=== PATIENT | female | born 1975 | race Hispanic/Latino ===

== ENCOUNTER 2018-06-18 05:53 | Inpatient (IN) | payer OTHER ==
[2018-06-18] MEDS ORDERED: Morphine 4 MG/ML VIAL IVP STA (06:13)
[2018-06-18] MEDS ORDERED: Sodium Chloride 0.9% 1,000 ML IV STA ×4 (06:14→09:39)
[2018-06-18 06:32] LABS: VENOUS BLOOD GAS BASE EXCESS 4.2 mmol/L (0.0-2.0); VENOUS BLOOD GAS PCO2 50 mmHg (40-60); VENOUS BLOOD GAS PO2 18 mm/Hg (30-55); VENOUS BLOOD PH 7.39 (7.32-7.43)
[2018-06-18 06:38] LABS: BASO % 0.1 % (0.0-2.0); EOS # 0.1 K/uL (0.0-0.7); EOS % 2.3 % (0.0-4.0); HEMOGLOBIN 11.5 g/dL (12.0-16.0); LYMPH # 0.3 K/uL (1.0-4.3); MEAN CELL VOLUME 101.7 fl (81.0-99.0); MEAN CORPUSCULAR HEMOGLOBIN 34.5 pg (27.0-31.0); MEAN CORPUSCULAR HGB CONC 33.9 g/dL (33.0-37.0); MEAN PLATELET VOLUME 7.9 fl (7.2-11.7); MONO # 0.4 K/uL (0.0-0.8); MONO % 9.7 % (0.0-10.0); NEUT # 3.8 K/uL (1.8-7.0); NEUT % 81.9 % (50.0-75.0); NRBC % 0.1 % (0.0-0.0); PLATELET COUNT 261 K/uL (130-400); RBC 3.33 Mil/uL (3.80-5.20); RED CELL DISTRIBUTION WIDTH 12.7 % (11.5-14.5); WHITE BLOOD COUNT 4.6 K/uL (4.8-10.8)
--- NOTE | 2018-06-18 06:47 | ED PDOC ---
HPI: Abdomen Time Seen by Provider: 06/18/18 06:02 Chief Complaint (Nursing): Abdominal Pain Chief Complaint (Provider): Abdominal Pain History Per: Patient History/Exam Limitations: no limitations Onset/Duration Of Symptoms: Hrs Current Symptoms Are (Timing): Still Present Location Of Pain/Discomfort: Diffuse Additional Complaint(s): 43 y/o female with a PMHx of a hysterectomy last September three days ago he went to [facility] for severe abdominal pain and vomiting. Patient reports there was an ovary wrapping around her intestine and had a surgery to unwrap it. Patient states she still has the ovary. Over the past 24 hours, patient reports of an increasingly worsening abdominal pain, distention and vomiting. Patient states she's had over 15 episodes of vomiting that is now becoming bilious, non-bloody. In addition, patient has not had a bowel movement in the last 24 hours and also complains of feeling very weak. PMD: None Provided Past Medical History Reviewed: Historical Data, Nursing Documentation, Vital Signs Vital Signs: Last Vital Signs Temp 100.4 F H 06/18/18 16:00 Pulse 120 H 06/18/18 18:00 Resp 24 06/18/18 18:00 BP 135/87 06/18/18 18:00 Pulse Ox 95 06/18/18 18:00 - Medical History PMH: No Chronic Diseases - Surgical History Surgical History: No Surg Hx - Family History Family History: States: Unknown Family Hx - Home Medications Home Medications: Ambulatory Orders Medication Instructions Recorded Dextroamphetamine/Amphetamine 20 mg PO BID 06/18/18 [Adderall 20 mg Tablet] Dextroamphetamine/Amphetamine 20 mg PO DAILY 06/18/18 [Adderall Xr 20 mg Capsule] Doxycycline Hyclate [Vibramycin] 100 mg PO BID 06/18/18 Tramadol HCl [Ultram] 50 mg PO BID 06/18/18 Valacyclovir HCl [Valacyclovir] 500 mg PO DAILY 06/18/18 Zolpidem [Ambien] 20 mg PO HS PRN 06/18/18 oxyCODONE/Acetaminophen [Percocet 1 tab PO Q4 PRN 06/18/18 5/325 mg Tab] - Allergies Allergies/Adverse Reactions: Allergies Allergy/AdvReac Type Severity Reaction Status Date / Time No Known Allergies Allergy Verified 06/18/18 06:00 Review of Systems ROS Statement: Except As Marked, All Systems Reviewed And Found Negative Gastrointestinal: Positive for: Vomiting, Abdominal Pain Physical Exam - Reviewed Nursing Documentation Reviewed: Yes Vital Signs Reviewed: Yes - Physical Exam Appears: Positive for: In Acute Distress Head Exam: Positive for: ATRAUMATIC, NORMOCEPHALIC Skin: Positive for: Normal Color, Warm, Dry Eye Exam: Positive for: Normal appearance, EOMI, PERRL Neck: Positive for: Normal, Painless ROM Cardiovascular/Chest: Positive for: Tachycardia Respiratory: Positive for: Normal Breath Sounds. Negative for: Respiratory Distress Gastrointestinal/Abdominal: Positive for: Normal Exam, Tenderness (diffusely), Distended, Other (Transverse surgical Scar in lower abdomen. No drainage). Negative for: Soft (firm) - Laboratory Results Result Diagrams: 06/18/18 06:34 06/18/18 06:34 - ECG O2 Sat by Pulse Oximetry: 97 (RA) Pulse Ox Interpretation: Normal Medical Decision Making Medical Decision Making: Time: 18 A/P: 43 y/o female with a history of hysterectomy and recent ovarian surgery presenting with abdominal pain and vomiting. -- Patient is unwell appearing and tachycardic. Patient's blood pressure is stable. -- Concerned for possible bowel perforation vs other complications of surgery vs. small bowel instruction vs colitis vs unlikely severe constipation. -- Will place two IVs -- Type and Screen -- EKG -- Urine Drug Screen -- ED Urine Dipstick -- ED Urine -- CXR One View -- Morphine 4 mg IVP -- Sodium Chloride IV 1000 mls/hr -- Sodium Chloride IV 1000 mls/hr -- Zofran Inj 4 mg IVP -- Blood Culture -- Urine Culture -- Urinalysis Time: 0642 -- Iohexol 50 mL PO -- CBC with differentials -- Lipase -- CMP -- CT ABD/PELVIS PO & IV CONTRAST -- Venous Blood Gas Time: 0700 -- Patient endorsed to Dr. Rodriguez by me, pending ED work up. Scribe Attestation: Documented by Christopher Pino acting as a scribe for Dr. Trung Mcdaniel MD. Provider Scribe Attestation: All medical record entries made by the Scribe were at my direction and personally dictated by me. I have reviewed the chart and agree that the record accurately reflects my personal performance of the history, physical exam, medical decision making, and the department course for this patient. I have also personally directed, reviewed, and agree with the discharge instructions and disposition. Disposition - Clinical Impression Clinical Impression: Intestinal obstruction - Disposition Disposition: Transfer of Care Disposition Time: 07:00 Condition: GUARDED Patient Signed Over To: John Rodriguez Handoff Comments: pending further workup and dispo and re-eval
[2018-06-18 06:48] LABS: ALB/GLOB RATIO 1.2 (1.0-2.1); ALBUMIN 3.6 g/dL (3.5-5.0); ALT/SGPT 29 U/L (9-52); AST/SGOT 37 U/L (14-36); BLOOD UREA NITROGEN 15 mg/dl (7-17); CALCIUM 8.6 mg/dL (8.4-10.2); GFR NON-AFRICAN AMERICAN > 60; LIPASE 25 U/L (23-300)
[2018-06-18] MEDS ORDERED: Iohexol 240 (50 ml) ONE ×2 (07:21→09:44)
--- NOTE | 2018-06-18 07:44 | ED PDOC ---
- Laboratory Results Result Diagrams: 06/18/18 06:34 06/18/18 06:34 - ECG O2 Sat by Pulse Oximetry: 97 (RA) - Progress Re-evaluation Time: 09:11 Condition: Re-examined, Unchanged - Critical Care Total Time (In Min): 30 Medical Decision Making Medical Decision Making: Time: 07:00 Patient care endorsed from Dr. Mcdaneil to Dr. Rodriguez pending CT scans, reevaluation, and final disposition. CT reveals intestinal obstruction. NG tube placed and draining bilious material. CBC with 29 Bands. Will start on IV vanco Zosyn and IVFs. Scribe Attestation: Documented by Clint Mota, acting as a scribe for John Rodriguez MD. Provider Scribe Attestation: All medical record entries made by the Scribe were at my direction and personally dictated by me. I have reviewed the chart and agree that the record accurately reflects my personal performance of the history, physical exam, medical decision making, and the department course for this patient. I have also personally directed, reviewed, and agree with the discharge instructions and disposition. Disposition - Clinical Impression Clinical Impression: Intestinal obstruction - POA Present On Arrival: None - Disposition Disposition: Admitted as In-Patient Disposition Time: 09:12 Condition: GUARDED Forms: So[employer]ina (Eritrean)
[2018-06-18] MEDS ORDERED: Iohexol 300 100 ML IJ ONE (07:54)
[2018-06-18] MEDS ORDERED: Sodium Chloride 0.9% 50 ML IV ONE (07:55)
[2018-06-18] MEDS: Iohexol 240 (50 ml) PO ONE ×3 (08:00→12:18)
[2018-06-18 08:52] LABS: BANDS 29 % (0-2); EOSINOPHIL 2 % (0-7); LYMPHOCYTE 10 % (20-50); MONOCYTE 11 % (0-10); NEUTROPHIL 48 % (42-75); TOTAL CELLS COUNTED 100
[2018-06-18 08:53] LABS: HYPOCHROMIC SLIGHT; PLATELET ESTIMATE NORMAL (NORMAL); TOXIC GRANULATION PRESENT
[2018-06-18] MEDS ORDERED: Piperacillin/Tazobact 3.375 GM in Sodium Chloride 0.9% 100 ML IVPB STA (09:00)
[2018-06-18] MEDS ORDERED: Sodium Chloride 0.9% 1,000 ML IV SCH (09:00)
[2018-06-18] MEDS ORDERED: Piperacillin/Tazobact 3.375 gm Inj IVPB ONE (09:09)
[2018-06-18] MEDS ORDERED: Iohexol 240 (50 ml) PO ONE (09:29)
--- NOTE | 2018-06-18 10:01 | CT ---
Date of service: 06/18/2018 PROCEDURE: CT Abdomen and Pelvis with contrast HISTORY: Abd pain. History of unspecified laparotomy approximately 3 days previous. COMPARISON: None. TECHNIQUE: Contrast dose: 90 mL Omnipaque 300 Radiation dose: Total exam DLP = 338.41 mGy-cm. This CT exam was performed using one or more of the following dose reduction techniques: Automated exposure control, adjustment of the mA and/or kV according to patient size, and/or use of iterative reconstruction technique. FINDINGS: LOWER THORAX: Small bilateral pleural effusion with minimal bilateral lower lobe compressive atelectasis. LIVER: Normal size, contour and attenuation. Scattered nonspecific very small low-attenuation lesions in the right and left lobe, largest 8 mm. No biliary dilatation. GALLBLADDER AND BILE DUCTS: Unremarkable. PANCREAS: Unremarkable. No gross lesion or ductal dilatation. SPLEEN: Unremarkable. ADRENALS: Unremarkable. No mass. KIDNEYS AND URETERS: Unremarkable. No hydronephrosis. No solid mass. VASCULATURE: Unremarkable. No aortic aneurysm. BOWEL: Numerous dilated small bowel loops consistent with mechanical small bowel obstruction. There are collapsed loops of ileum identified. Precise point of obstruction is not evident from this examination. APPENDIX: Normal appendix. PERITONEUM: Mild ascites. There is an extraperitoneal high attenuation collection anterior to the bladder base measuring approximately 4.3 x 5.8 x 7.4 cm. This likely represents a postoperative hematoma. There are bubbles of gas inferior to the base of this collection, in the extraperitoneal space anterior to the urinary bladder. This could represent an infection but does not have an appearance consistent with foreign abscess at this time. There is enlargement of the inferior aspect of the rectus muscle bilaterally consistent with hemorrhage/edema from recent surgery. Small high attenuation collections are seen scattered in the lower anterior abdominal wall intermixed with gas bubbles, consistent with recent postoperative status. There are few small foci of intraperitoneal gas seen in the upper abdomen, adjacent to the solo hepatis, consistent with trace postoperative pneumoperitoneum. There is no generalized pneumoperitoneum appreciated to suggest bowel perforation. LYMPH NODES: Unremarkable. No enlarged lymph nodes. BLADDER: Unremarkable. REPRODUCTIVE: Normal uterus BONES: No acute fracture. OTHER FINDINGS: None. IMPRESSION: Status post laparotomy with postoperative change in the anterior abdominal wall and rectus muscles. There is probable acute hematoma in the inferior extraperitoneal space anterior to the base of the urinary bladder, up to 7.4 cm greatest dimension. There are a few bubbles of gas seen inferior to this collection without associated foreign fluid collection. Possible infection without matured abscess at this time. Mild ascites. Mechanical small bowel obstruction with point of obstruction not clearly identifiable. There are collapsed loops of ileum identified. Trace pneumoperitoneum consistent with postoperative status. Minimal bilateral pleural effusion.
--- NOTE | 2018-06-18 10:12 | CP.PCM.CON ---
<Savi Yin - Last Filed: 06/18/18 09:56> History of Present Illness - History of Present Illness History of Present Illness: Surgery 43 F w recent ho exploratory laparotomy for R ovarian torsion came with abdominal pain, abdominal distention, N, vomiting. Pt reports having abdominal pain since 06/[address] [facility]. Found to have R ovarian torsion. Per Dr. Alves at [facility] there were adhesions of bowel on R retroperitoneal area., adnexal torsion with rutpured ovarian cyst. R oophrectomy and lysis of adhesion was performed. No bowel was resected. Path showed hemorrhagic ovarian cyst. Severe pain started on tuesday. Last BM or flatus was also on tuesday. Per Dr. Alves, pt was doing well post-operatively and was sent home yestesday. Pt contisues to have diffuse abdominal pain, multiple episodes of bilious vomiting. Abdomen is distended. NGT was placed in ED. Put out 300cc thick bilious output immediately. Pt reports relieved sx. CT was done w/o PO contrast bc pt couldn;t tolerate PO. Shows dilated loops of SB w air/fluids level . Post op changes. Pt was unable to tolerated PO and after NGT placement pt reports thirst and hunger. PMH: Bicornuate uterus, fibroids, Anxiety, ADHD PSH : Ex lap R oophrectomy, TITA (06/15/[address] [facility] by Dr. Alves) , Hysterectomy for fibroids (09/2017) , Appendectomy (10 yrs ago) Meds: Adderall, Ambiem Review of Systems - Review of Systems Review of Systems: See HPI - Constitutional Constitutional: Anorexia. absent: Chills - Gastrointestinal Gastrointestinal: Abdominal Pain, Bloating, Change in Bowel Habits, Constipation , Nausea, Vomiting. absent: Heartburn, Hematemesis, Hematochezia, Melena - Genitourinary Genitourinary: absent: Dysuria Past Patient History - Past Social History Smoking Status: Never Smoked - PSYCHIATRIC Hx Substance Use: No - SURGICAL HISTORY Hx Surgeries: Yes Hx Hysterectomy: Yes Other/Comment: ovary twisted around intestine - ANESTHESIA Hx Anesthesia: Yes Meds Allergies/Adverse Reactions: Allergies Allergy/AdvReac Type Severity Reaction Status Date / Time No Known Allergies Allergy Verified 06/18/18 06:00 - Medications Medications: Current Medications Acetaminophen (Tylenol 325mg Tab) 650 mg PO Q4 PRN PRN Reason: Fever >100.4 F Hydromorphone HCl (Dilaudid) 0.5 mg IVP Q4 PRN PRN Reason: Pain, moderate (4-7) Sodium Chloride (Sodium Chloride 0.9%) 1,000 mls @ 100 mls/hr IV .Q10H [facility]INE Stop: 06/19/18 08:57 Vancomycin HCl 1 gm/ Sodium (Chloride) 250 mls @ 166.667 mls/hr IVPB STAT STA PRN Reason: Protocol Stop: 06/18/18 10:29 Piperacillin Sod/Tazobactam (Sod 3.375 gm/ Sodium Chloride) 100 mls @ 100 mls/ hr IVPB STAT STA PRN Reason: Protocol Stop: 06/18/18 09:59 Last Admin: 06/18/18 09:19 Dose: 100 mls/hr Sodium Chloride (Sodium Chloride 0.9%) 1,000 mls @ 1,000 mls/hr IV .Q1H STA Stop: 06/18/18 10:01 Last Admin: 06/18/18 09:08 Dose: 1,000 mls/hr Sodium Chloride (Sodium Chloride 0.9%) 1,000 mls @ 250 mls/hr IV .Q4H STA Stop: 06/18/18 13:38 Ondansetron HCl (Zofran Inj) 4 mg IVP Q4 PRN PRN Reason: Nausea/Vomiting Results - Vital Signs Recent Vital Signs: Last Vital Signs Temp 98.9 F 06/18/18 05:56 Pulse 130 H 06/18/18 05:56 Resp 18 06/18/18 05:56 BP 124/85 06/18/18 05:56 Pulse Ox 97 06/18/18 09:12 - Labs Result Diagrams: 06/18/18 06:34 06/18/18 06:34 Labs: Laboratory Results - last 24 hr 06/18/18 06/18/18 06/18/18 06:29 06:34 06:34 WBC 4.6 L RBC 3.33 L Hgb 11.5 L Hct 33.9 L MCV 101.7 H MCH 34.5 H MCHC 33.9 RDW 12.7 Plt Count 261 MPV 7.9 Neut % (Auto) 81.9 H Lymph % (Auto) 6.0 L [place] % (Auto) 9.7 Eos % (Auto) 2.3 Baso % (Auto) 0.1 Neut # (Auto) 3.8 Lymph # (Auto) 0.3 L [place] # (Auto) 0.4 Eos # (Auto) 0.1 Baso # (Auto) 0.0 Neutrophils % (Manual) 48 Band Neutrophils % 29 H* Lymphocytes % (Manual) 10 L Monocytes % (Manual) 11 H Eosinophils % (Manual) 2 Toxic Granulation Present Platelet Estimate Normal Hypochromasia (manual) Slight Macrocytosis (manual) Slight pO2 18 L VBG pH 7.39 VBG pCO2 50 VBG HCO3 26.3 VBG Total CO2 31.8 H VBG O2 Sat (Calc) 19.2 L VBG Base Excess 4.2 H VBG Potassium 3.9 Sodium 133.0 137 Chloride 98.0 97 L Glucose 124 H Lactate 1.5 FiO2 21.0 Potassium 4.0 Carbon Dioxide 27 Anion Gap 17 BUN 15 Creatinine 0.7 Est GFR ( Amer) > 60 Est GFR (Non-Af Amer) > 60 Random Glucose 114 H Calcium 8.6 Total Bilirubin 0.6 AST 37 H ALT 29 Alkaline Phosphatase 48 Total Protein 6.5 Albumin 3.6 Globulin 2.9 Albumin/Globulin Ratio 1.2 Lipase 25 Venous Blood Potassium 3.9 Assessment & Plan - Assessment and Plan (Free Text) Assessment: Small bowel obstruction s/p recent operation PSH of appendectomy,hysterectomy, R oophrectomy NGT decompression low cont suction IVF NPO Repeat CT w PO contrast via NGT Nausea/pain control DVT/GI ppx Ambulate IS Monitor BM/VS [employer] consult for recent gynecologist sx for Ovarian torsion DW Dr. Kaur <Alexis Kaur - Last Filed: 06/18/18 16:18> History of Present Illness - History of Present Illness History of Present Illness: Patient was seen and examined at the bedside. Agree with resident's note above. Meds - Medications Medications: Current Medications Acetaminophen (Tylenol 325mg Tab) 650 mg PO Q4 PRN PRN Reason: Fever >100.4 F Hydromorphone HCl (Dilaudid) 0.5 mg IVP Q4 PRN PRN Reason: Pain, moderate (4-7) Last Admin: 06/18/18 10:44 Dose: 0.5 mg Hydromorphone HCl (Dilaudid) 1 mg IVP Q4 PRN PRN Reason: Pain, severe (8-10) Last Admin: 06/18/18 14:25 Dose: 1 mg Sodium Chloride (Sodium Chloride 0.9%) 1,000 mls @ 100 mls/hr IV .Q10H [facility] Stop: 06/19/18 08:57 Piperacillin Sod/Tazobactam (Sod 3.375 gm/ Sodium Chloride) 100 mls @ 100 mls/ hr IVPB Q6 [facility]INE PRN Reason: Protocol Lactated Ringer's (Lactated Ringer's) 2,000 mls @ 999 mls/hr IV .Q2H1M [facility] Lactated Ringer's (Lactated Ringer's) 1,000 mls @ 150 mls/hr IV .Q6H40M [facility] Ondansetron HCl (Zofran Inj) 4 mg IVP Q4 PRN PRN Reason: Nausea/Vomiting Pantoprazole Sodium (Protonix Inj) 40 mg IVP DAILY [facility] Last Admin: 06/18/18 10:56 Dose: 40 mg Physical Exam - ENT Exam ENT Exam: Mucous Membranes Dry - GI/Abdominal Exam Additional comments: soft, tender to palpation, mildly distended, BS+, lower abdominal incision clean , no erythema, steri-strips in place Results - Vital Signs Recent Vital Signs: Last Vital Signs Temp 98.4 F 06/18/18 13:39 Pulse 114 H 06/18/18 14:00 Resp 18 06/18/18 14:00 BP 135/74 06/18/18 14:00 Pulse Ox 99 06/18/18 14:00 - Labs Result Diagrams: 06/18/18 06:34 06/18/18 06:34 Labs: Laboratory Results - last 24 hr 06/18/18 06/18/18 06/18/18 06:29 06:29 06:34 WBC 4.6 L RBC 3.33 L Hgb 11.5 L Hct 33.9 L MCV 101.7 H MCH 34.5 H MCHC 33.9 RDW 12.7 Plt Count 261 MPV 7.9 Neut % (Auto) 81.9 H Lymph % (Auto) 6.0 L [place] % (Auto) 9.7 Eos % (Auto) 2.3 Baso % (Auto) 0.1 Neut # (Auto) 3.8 Lymph # (Auto) 0.3 L [place] # (Auto) 0.4 Eos # (Auto) 0.1 Baso # (Auto) 0.0 Neutrophils % (Manual) 48 Band Neutrophils % 29 H* Lymphocytes % (Manual) 10 L Monocytes % (Manual) 11 H Eosinophils % (Manual) 2 Toxic Granulation Present Platelet Estimate Normal Hypochromasia (manual) Slight Macrocytosis (manual) Slight pO2 18 L VBG pH 7.39 VBG pCO2 50 VBG HCO3 26.3 VBG Total CO2 31.8 H VBG O2 Sat (Calc) 19.2 L VBG Base Excess 4.2 H VBG Potassium 3.9 Sodium 133.0 Chloride 98.0 Glucose 124 H Lactate 1.5 FiO2 21.0 Potassium Carbon Dioxide Anion Gap BUN Creatinine Est GFR ( Amer) Est GFR (Non-Af Amer) Random Glucose Calcium Total Bilirubin AST ALT Alkaline Phosphatase Total Protein Albumin Globulin Albumin/Globulin Ratio Lipase Venous Blood Potassium 3.9 Urine Color Urine Clarity Urine pH Ur Specific [place] Urine Protein Urine Glucose (UA) Urine Ketones Urine Blood Urine Nitrate Urine Bilirubin Urine Urobilinogen Ur Leukocyte Esterase Urine RBC (Auto) Urine Microscopic WBC Ur Squamous Epith Cells Urine Bacteria Urine Opiates Screen Urine Methadone Screen Ur Barbiturates Screen Ur Phencyclidine Scrn Ur Amphetamines Screen U Benzodiazepines Scrn U Oth Cocaine Metabols U Cannabinoids Screen Blood Type Blood Type Confirm O POSITIVE Antibody Screen BBK History Checked 06/18/18 06/18/18 06/18/18 06:34 10:28 11:25 WBC RBC Hgb Hct MCV MCH MCHC RDW Plt Count MPV Neut % (Auto) Lymph % (Auto) [place] % (Auto) Eos % (Auto) Baso % (Auto) Neut # (Auto) Lymph # (Auto) [place] # (Auto) Eos # (Auto) Baso # (Auto) Neutrophils % (Manual) Band Neutrophils % Lymphocytes % (Manual) Monocytes % (Manual) Eosinophils % (Manual) Toxic Granulation Platelet Estimate Hypochromasia (manual) Macrocytosis (manual) pO2 VBG pH VBG pCO2 VBG HCO3 VBG Total CO2 VBG O2 Sat (Calc) VBG Base Excess VBG Potassium Sodium 137 Chloride 97 L Glucose Lactate FiO2 Potassium 4.0 Carbon Dioxide 27 Anion Gap 17 BUN 15 Creatinine 0.7 Est GFR ( Amer) > 60 Est GFR (Non-Af Amer) > 60 Random Glucose 114 H Calcium 8.6 Total Bilirubin 0.6 AST 37 H ALT 29 Alkaline Phosphatase 48 Total Protein 6.5 Albumin 3.6 Globulin 2.9 Albumin/Globulin Ratio 1.2 Lipase 25 Venous Blood Potassium Urine Color Urine Clarity Urine pH Ur Specific [place] Urine Protein Urine Glucose (UA) Urine Ketones Urine Blood Urine Nitrate Urine Bilirubin Urine Urobilinogen Ur Leukocyte Esterase Urine RBC (Auto) Urine Microscopic WBC Ur Squamous Epith Cells Urine Bacteria Urine Opiates Screen Positive H Urine Methadone Screen Negative Ur Barbiturates Screen Negative Ur Phencyclidine Scrn Negative Ur Amphetamines Screen Negative U Benzodiazepines Scrn Negative U Oth Cocaine Metabols Negative U Cannabinoids Screen Negative Blood Type O POSITIVE Blood Type Confirm Antibody Screen Negative BBK History Checked No verified bt 06/18/18 11:25 WBC RBC Hgb Hct MCV MCH MCHC RDW Plt Count MPV Neut % (Auto) Lymph % (Auto) [place] % (Auto) Eos % (Auto) Baso % (Auto) Neut # (Auto) Lymph # (Auto) [place] # (Auto) Eos # (Auto) Baso # (Auto) Neutrophils % (Manual) Band Neutrophils % Lymphocytes % (Manual) Monocytes % (Manual) Eosinophils % (Manual) Toxic Granulation Platelet Estimate Hypochromasia (manual) Macrocytosis (manual) pO2 VBG pH VBG pCO2 VBG HCO3 VBG Total CO2 VBG O2 Sat (Calc) VBG Base Excess VBG Potassium Sodium Chloride Glucose Lactate FiO2 Potassium Carbon Dioxide Anion Gap BUN Creatinine Est GFR ( Amer) Est GFR (Non-Af Amer) Random Glucose Calcium Total Bilirubin AST ALT Alkaline Phosphatase Total Protein Albumin Globulin Albumin/Globulin Ratio Lipase Venous Blood Potassium Urine Color Yellow Urine Clarity Slighty-cloudy Urine pH 6.0 Ur Specific [place] >= 1.030 Urine Protein 30 Urine Glucose (UA) Neg Urine Ketones 80 Urine Blood Negative Urine Nitrate Negative Urine Bilirubin Negative Urine Urobilinogen 0.2-1.0 Ur Leukocyte Esterase Neg Urine RBC (Auto) 3 Urine Microscopic WBC 2 Ur Squamous Epith Cells 3 Urine Bacteria Rare Urine Opiates Screen Urine Methadone Screen Ur Barbiturates Screen Ur Phencyclidine Scrn Ur Amphetamines Screen U Benzodiazepines Scrn U Oth Cocaine Metabols U Cannabinoids Screen Blood Type Blood Type Confirm Antibody Screen BBK History Checked - Imaging and Cardiology CT scan - abdomen Status: Image reviewed by me, Report reviewed by me Assessment & Plan - Assessment and Plan (Free Text) Plan: - Keep NPO - NG tube to wall suction - pain control - 2L bolus IV - Powers catheter - Continue antibiotics - KUB in am - Repeat labs in am - Will follow
--- NOTE | 2018-06-18 10:19 | CP.PCM.CON ---
<Da Shah - Last Filed: 06/18/18 11:11> History of Present Illness - History of Present Illness History of Present Illness: 43 yo F POD 3: exploratory laparotomy for R ovarian torsion s/p R oophorectomy with lysis of adhesions. Per Dr. Christina BAPTISTE who performed the procedure, no bowel was resected. Urology was consulted and ureterolysis was performed. No injury was noted to ureters. She did well and discharged on POD2. Of note: Prior symptoms: 06/15/2018, she experienced episodes of nausea with continuous vomiting, yellow in character and upper abdominal pain, sharp in character, 10/10 and radiating to her back. PMHX: MS (2011), Meningioma of brain (2011; did not require surgical, radiation, chemo intervention) Per patient, stable and followed by Dr. Suggs, Neurology. 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 Nunez 09/2017 (2/2 uterine bleed from large leiomyomas) FamHx: none Soc: smokes cigarettes, Denies: etoh or illicit drugs; not sexually active ( years) Close friend: Jessica was present at bedside Review of Systems - Constitutional Constitutional: As Per HPI - Cardiovascular Cardiovascular: absent: Chest Pain - Respiratory Respiratory: absent: Cough, Dyspnea, Wheezing - Gastrointestinal Gastrointestinal: Abdominal Pain, Dyspepsia, Vomiting - Reproductive: Female Reproductive:Female: As Per HPI - Menstruation Menstruation: As Per HPI Past Patient History - Past Medical History & Family History Past Medical History?: Yes - Past Social History Smoking Status: Light Smoker < 10 Cigarettes Daily Alcohol: None Drugs: Denies - CARDIAC Hx Cardiac Disorders: No - PULMONARY Hx Respiratory Disorders: No - NEUROLOGICAL Hx Multiple Sclerosis: Yes (2011) Other/Comment: meningioma 2011. Neuro: Dr. 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 R oophorectomy 05/2018 - ANESTHESIA Hx Anesthesia: Yes Meds Allergies/Adverse Reactions: Allergies Allergy/AdvReac Type Severity Reaction Status Date / Time No Known Allergies Allergy Verified 06/18/18 06:00 - Medications Medications: Current Medications Acetaminophen (Tylenol 325mg Tab) 650 mg PO Q4 PRN PRN Reason: Fever >100.4 F Hydromorphone HCl (Dilaudid) 0.5 mg IVP Q4 PRN PRN Reason: Pain, moderate (4-7) Sodium Chloride (Sodium Chloride 0.9%) 1,000 mls @ 100 mls/hr IV .Q10H CLEMENTINE Stop: 06/19/18 08:57 Vancomycin HCl 1 gm/ Sodium (Chloride) 250 mls @ 166.667 mls/hr IVPB STAT STA PRN Reason: Protocol Stop: 06/18/18 10:29 Sodium Chloride (Sodium Chloride 0.9%) 1,000 mls @ 250 mls/hr IV .Q4H STA Stop: 06/18/18 13:38 Piperacillin Sod/Tazobactam (Sod 3.375 gm/ Sodium Chloride) 100 mls @ 100 mls/ hr IVPB Q6 CLEMENTINE PRN Reason: Protocol Ondansetron HCl (Zofran Inj) 4 mg IVP Q4 PRN PRN Reason: Nausea/Vomiting Physical Exam - Constitutional Appears: In Acute Distress - Head Exam Head Exam: ATRAUMATIC - Eye Exam Eye Exam: EOMI - ENT Exam ENT Exam: Mucous Membranes Dry - Neck Exam Neck exam: Positive for: Full Rom - Respiratory Exam Respiratory Exam: Clear to Auscultation Bilateral, NORMAL BREATHING PATTERN. absent: Wheezes - Cardiovascular Exam Cardiovascular Exam: Tachycardia, REGULAR RHYTHM, +S1, +S2 - GI/Abdominal Exam GI & Abdominal Exam: Distended, Firm, Guarding, Rigid - Extremities Exam Extremities exam: Negative for: calf tenderness - Neurological Exam Neurological exam: Alert, CN II-XII Intact, Oriented x3 - Psychiatric Exam Psychiatric exam: Agitated, Anxious - Skin Additional comments: Low transverse abdominal scar from pfannenstiel incision: wound is C/D/I with steri strips in place. Tender to palpation Results - Vital Signs Recent Vital Signs: Last Vital Signs Temp 97.8 F 06/18/18 09:58 Pulse 115 H 06/18/18 09:58 Resp 16 06/18/18 09:58 BP 130/75 06/18/18 09:58 Pulse Ox 100 06/18/18 09:58 - Labs Result Diagrams: 06/18/18 06:34 06/18/18 06:34 Labs: Laboratory Results - last 24 hr 06/18/18 06/18/18 06/18/18 06:29 06:34 06:34 WBC 4.6 L RBC 3.33 L Hgb 11.5 L Hct 33.9 L MCV 101.7 H MCH 34.5 H MCHC 33.9 RDW 12.7 Plt Count 261 MPV 7.9 Neut % (Auto) 81.9 H Lymph % (Auto) 6.0 L [place] % (Auto) 9.7 Eos % (Auto) 2.3 Baso % (Auto) 0.1 Neut # (Auto) 3.8 Lymph # (Auto) 0.3 L [place] # (Auto) 0.4 Eos # (Auto) 0.1 Baso # (Auto) 0.0 Neutrophils % (Manual) 48 Band Neutrophils % 29 H* Lymphocytes % (Manual) 10 L Monocytes % (Manual) 11 H Eosinophils % (Manual) 2 Toxic Granulation Present Platelet Estimate Normal Hypochromasia (manual) Slight Macrocytosis (manual) Slight pO2 18 L VBG pH 7.39 VBG pCO2 50 VBG HCO3 26.3 VBG Total CO2 31.8 H VBG O2 Sat (Calc) 19.2 L VBG Base Excess 4.2 H VBG Potassium 3.9 Sodium 133.0 137 Chloride 98.0 97 L Glucose 124 H Lactate 1.5 FiO2 21.0 Potassium 4.0 Carbon Dioxide 27 Anion Gap 17 BUN 15 Creatinine 0.7 Est GFR ( Amer) > 60 Est GFR (Non-Af Amer) > 60 Random Glucose 114 H Calcium 8.6 Total Bilirubin 0.6 AST 37 H ALT 29 Alkaline Phosphatase 48 Total Protein 6.5 Albumin 3.6 Globulin 2.9 Albumin/Globulin Ratio 1.2 Lipase 25 Venous Blood Potassium 3.9 Assessment & Plan - Assessment and Plan (Free Text) Assessment: 43 yo F POD 3 s/p R oophrectomy with lysis of abdominal adhesions presents with diffuse abdominal pain/distension, vomiting and bandemia. Plan: Acute SBO -POD 3: R oophorectomy -Admitted to [facility] under care of Hospitalist -Surgery: Dr. Kaur; recommendations appreciated -NPO -IVF: NS at 100 mls/hr -NG tube decompression -IV ABX: Zosyn -Pain management per surgery team -N/V: zofran PRN -Pending repeat CT abdo/pelvis with PO contrast -F/U BCX x2, UA/CX -Monitor vital signs, BM, and urinary movements -Will continue to follow patient while in house Case dw Dr. Dana Shah MD PGY2 <Immanuel Cortez - Last Filed: 06/19/18 10:47> Meds - Medications Medications: Current Medications Acetaminophen (Tylenol 650 Mg Supp) 650 mg DE Q4 PRN PRN Reason: Pain, Mild (1-3) Hydromorphone HCl (Dilaudid) 0.5 mg IVP Q4 PRN PRN Reason: Pain, moderate (4-7) Last Admin: 06/19/18 05:27 Dose: 0.5 mg Hydromorphone HCl (Dilaudid) 1 mg IVP Q4 PRN PRN Reason: Pain, severe (8-10) Last Admin: 06/19/18 09:30 Dose: 1 mg Piperacillin Sod/Tazobactam (Sod 3.375 gm/ Sodium Chloride) 100 mls @ 100 mls/ hr IVPB Q6 CLEMENTINE PRN Reason: Protocol Last Admin: 06/19/18 09:42 Dose: 100 mls/hr Lactated Ringer's (Lactated Ringer's) 2,000 mls @ 999 mls/hr IV .Q2H1M [facility] Last Admin: 06/18/18 21:36 Dose: 999 mls/hr Lactated Ringer's (Lactated Ringer's) 1,000 mls @ 150 mls/hr IV .Q6H40M [facility] Last Admin: 06/19/18 09:32 Dose: 150 mls/hr Vancomycin HCl 1 gm/ Sodium (Chloride) 250 mls @ 166.667 mls/hr IVPB Q12H CLEMENTINE PRN Reason: Protocol Last Admin: 06/19/18 05:35 Dose: 166.667 mls/hr Ondansetron HCl (Zofran Inj) 4 mg IVP Q4 PRN PRN Reason: Nausea/Vomiting Pantoprazole Sodium (Protonix Inj) 40 mg IVP DAILY [facility] Last Admin: 06/19/18 09:55 Dose: 40 mg Results - Vital Signs Recent Vital Signs: Last Vital Signs Temp 98.3 F 06/19/18 08:00 Pulse 101 H 06/19/18 08:00 Resp 16 06/19/18 08:00 BP 144/87 06/19/18 08:00 Pulse Ox 95 06/19/18 08:00 - Labs Result Diagrams: 06/19/18 05:26 06/19/18 05:26 Labs: Laboratory Results - last 24 hr 06/18/18 06/18/18 06/18/18 06:29 10:28 10:46 WBC RBC Hgb Hct MCV MCH MCHC RDW Plt Count MPV Neut % (Auto) Lymph % (Auto) [place] % (Auto) Eos % (Auto) Baso % (Auto) Neut # (Auto) Lymph # (Auto) [place] # (Auto) Eos # (Auto) Baso # (Auto) Sodium Potassium Chloride Carbon Dioxide Anion Gap BUN Creatinine Est GFR ( Amer) Est GFR (Non-Af Amer) Random Glucose Calcium Total Bilirubin AST ALT Alkaline Phosphatase Total Protein Albumin Globulin Albumin/Globulin Ratio Procalcitonin 0.29 Urine Color Urine Clarity Urine pH Ur Specific [place] Urine Protein Urine Glucose (UA) Urine Ketones Urine Blood Urine Nitrate Urine Bilirubin Urine Urobilinogen Ur Leukocyte Esterase Urine RBC (Auto) Urine Microscopic WBC Ur Squamous Epith Cells Urine Bacteria Urine Opiates Screen Urine Methadone Screen Ur Barbiturates Screen Ur Phencyclidine Scrn Ur Amphetamines Screen U Benzodiazepines Scrn U Oth Cocaine Metabols U Cannabinoids Screen Blood Type O POSITIVE Blood Type Confirm O POSITIVE Antibody Screen Negative Crossmatch See Detail BBK History Checked No verified bt 06/18/18 06/18/18 06/19/18 11:25 11:25 05:26 WBC 5.2 RBC 2.79 L Hgb 9.8 L Hct 28.5 L MCV 102.1 H MCH 35.0 H MCHC 34.3 RDW 12.8 Plt Count 274 MPV 7.8 Neut % (Auto) 65.1 Lymph % (Auto) 14.2 L [place] % (Auto) 17.9 H Eos % (Auto) 2.6 Baso % (Auto) 0.2 Neut # (Auto) 3.4 Lymph # (Auto) 0.7 L [place] # (Auto) 0.9 H Eos # (Auto) 0.1 Baso # (Auto) 0.0 Sodium Potassium Chloride Carbon Dioxide Anion Gap BUN Creatinine Est GFR ( Amer) Est GFR (Non-Af Amer) Random Glucose Calcium Total Bilirubin AST ALT Alkaline Phosphatase Total Protein Albumin Globulin Albumin/Globulin Ratio Procalcitonin Urine Color Yellow Urine Clarity Slighty-cloudy Urine pH 6.0 Ur Specific [place] >= 1.030 Urine Protein 30 Urine Glucose (UA) Neg Urine Ketones 80 Urine Blood Negative Urine Nitrate Negative Urine Bilirubin Negative Urine Urobilinogen 0.2-1.0 Ur Leukocyte Esterase Neg Urine RBC (Auto) 3 Urine Microscopic WBC 2 Ur Squamous Epith Cells 3 Urine Bacteria Rare Urine Opiates Screen Positive H Urine Methadone Screen Negative Ur Barbiturates Screen Negative Ur Phencyclidine Scrn Negative Ur Amphetamines Screen Negative U Benzodiazepines Scrn Negative U Oth Cocaine Metabols Negative U Cannabinoids Screen Negative Blood Type Blood Type Confirm Antibody Screen Crossmatch BBK History Checked 06/19/18 05:26 WBC RBC Hgb Hct MCV MCH MCHC RDW Plt Count MPV Neut % (Auto) Lymph % (Auto) [place] % (Auto) Eos % (Auto) Baso % (Auto) Neut # (Auto) Lymph # (Auto) [place] # (Auto) Eos # (Auto) Baso # (Auto) Sodium 137 Potassium 3.7 Chloride 104 Carbon Dioxide 22 Anion Gap 15 BUN 10 Creatinine 0.5 L Est GFR ( Amer) > 60 Est GFR (Non-Af Amer) > 60 Random Glucose 78 Calcium 7.7 L Total Bilirubin 0.4 AST 28 ALT 26 Alkaline Phosphatase 33 L D Total Protein 5.2 L Albumin 2.7 L D Globulin 2.5 Albumin/Globulin Ratio 1.1 Procalcitonin Urine Color Urine Clarity Urine pH Ur Specific [place] Urine Protein Urine Glucose (UA) Urine Ketones Urine Blood Urine Nitrate Urine Bilirubin Urine Urobilinogen Ur Leukocyte Esterase Urine RBC (Auto) Urine Microscopic WBC Ur Squamous Epith Cells Urine Bacteria Urine Opiates Screen Urine Methadone Screen Ur Barbiturates Screen Ur Phencyclidine Scrn Ur Amphetamines Screen U Benzodiazepines Scrn U Oth Cocaine Metabols U Cannabinoids Screen Blood Type Blood Type Confirm Antibody Screen Crossmatch BBK History Checked Assessment & Plan - Assessment and Plan (Free Text) Plan: OB Hospitalist: Pt seen and agree with note PGY2. Followed by surgery. IT SECURITY ARCHITECT to sign off/re-consult if needed. Case discussed with Dr Maki - Date & Time Date: 06/19/18 Time: 10:30
--- NOTE | 2018-06-18 10:29 | RAD ---
Date of service: 06/18/2018 PROCEDURE: CHEST RADIOGRAPH, 1 VIEW HISTORY: r/o free air, recent surgery, distended abdomen COMPARISON: None available. FINDINGS: LUNGS: Clear. PLEURA: No pneumothorax or pleural fluid seen. CARDIOVASCULAR: Normal. OSSEOUS STRUCTURES: No significant abnormalities. VISUALIZED UPPER ABDOMEN: Normal. OTHER FINDINGS: None. IMPRESSION: No active disease.
[2018-06-18] MEDS ORDERED: Vancomycin 1 g Inj ONE (10:31)
--- NOTE | 2018-06-18 10:35 | CP.PCM.HP ---
History of Present Illness - History of Present Illness History of Present Illness: CC: Abdominal pain This is a 43 year old female with a past medical history of a hysterectomy last September, who went to [facility] three days ago c/o severe abdominal pain and vomiting. The patient relates that there the surgeons found an ovary which was wrapping around her intestine and subsequently unwrapped it. She now presents to [facility] due to increasingly worse sharp, crampy abdominal pain centered in the middle of her abdomen and radiating to the left and right sides. A CT scan was performed in the ED which showed signs of an acute bowel obstruction. An NG tube was placed and so far has drained 300 cc of dark green material. The patient's labwork reveal significant bandemia of 29 and neutrophil % of 81.9. The patient was given Vancomycin and Zosyn in the ED, along with aggressive rehydration with normal saline. Dr. Kaur was called on for general surgery and Dr. Cortez was called for Skin Specialist given the involvement of her right ovary in the previous surgery. Currently, patient appears unwell and is tachycardic, although tachycardia has improved somewhat with IV fluid administration. Patient denies chest pain, shortness of breath, fevers, chills, headache. All of the patient's questions were answered at the bedside. Present on Admission - Present on Admission Any Indicators Present on Admission: No History of DVT/PE: No History of Uncontrolled Diabetes: No Review of Systems - Review of Systems Review of Systems: A 12 point review of systems was conducted and found to be negative other than what was mentioned in the HPI. Past Patient History - Infectious Disease Hx of Infectious Diseases: None - Past Medical History & Family History Past Medical History?: Yes Past Family History: Reviewed and not pertinent - Past Social History Smoking Status: Never Smoked Alcohol: None Drugs: Denies - PSYCHIATRIC Hx Substance Use: No - SURGICAL HISTORY Hx Surgeries: Yes Hx Hysterectomy: Yes Other/Comment: ovary twisted around intestine - ANESTHESIA Hx Anesthesia: Yes Meds Allergies/Adverse Reactions: Allergies Allergy/AdvReac Type Severity Reaction Status Date / Time No Known Allergies Allergy Verified 06/18/18 06:00 Physical Exam - Additional Findings Additional findings: Physical exam: Constitutional- cooperative, awake, alert, appears unwell Head- NCAT, PERRL. NG tube draining green material Eye- PERRL, EOMI ENT- normal exam, MMM. Neck- normal inspection, supple, no JVD Respiratory- CTAB, no wheezes rales rhonchi Cardiovascular- RRR, +S1, +S2 no MRG GI/Abdominal- Firm, tender to palpation of the umbilicus, no bowel sounds, no mass, no hsm Skin- warm, dry Extremities Exam- normal capillary refill, normal inspection Neurological Exam- alert, awake, oriented Psych- normal mood, normal affect Results - Vital Signs Recent Vital Signs: Last Vital Signs Temp 98.9 F 06/18/18 05:56 Pulse 130 H 06/18/18 05:56 Resp 18 06/18/18 05:56 BP 124/85 06/18/18 05:56 Pulse Ox 97 06/18/18 09:12 - Labs Result Diagrams: 06/18/18 06:34 06/18/18 06:34 Labs: Laboratory Results - last 24 hr 06/18/18 06/18/18 06/18/18 06:29 06:34 06:34 WBC 4.6 L RBC 3.33 L Hgb 11.5 L Hct 33.9 L MCV 101.7 H MCH 34.5 H MCHC 33.9 RDW 12.7 Plt Count 261 MPV 7.9 Neut % (Auto) 81.9 H Lymph % (Auto) 6.0 L [place] % (Auto) 9.7 Eos % (Auto) 2.3 Baso % (Auto) 0.1 Neut # (Auto) 3.8 Lymph # (Auto) 0.3 L [place] # (Auto) 0.4 Eos # (Auto) 0.1 Baso # (Auto) 0.0 Neutrophils % (Manual) 48 Band Neutrophils % 29 H* Lymphocytes % (Manual) 10 L Monocytes % (Manual) 11 H Eosinophils % (Manual) 2 Toxic Granulation Present Platelet Estimate Normal Hypochromasia (manual) Slight Macrocytosis (manual) Slight pO2 18 L VBG pH 7.39 VBG pCO2 50 VBG HCO3 26.3 VBG Total CO2 31.8 H VBG O2 Sat (Calc) 19.2 L VBG Base Excess 4.2 H VBG Potassium 3.9 Sodium 133.0 137 Chloride 98.0 97 L Glucose 124 H Lactate 1.5 FiO2 21.0 Potassium 4.0 Carbon Dioxide 27 Anion Gap 17 BUN 15 Creatinine 0.7 Est GFR ( Amer) > 60 Est GFR (Non-Af Amer) > 60 Random Glucose 114 H Calcium 8.6 Total Bilirubin 0.6 AST 37 H ALT 29 Alkaline Phosphatase 48 Total Protein 6.5 Albumin 3.6 Globulin 2.9 Albumin/Globulin Ratio 1.2 Lipase 25 Venous Blood Potassium 3.9 Assessment & Plan - Assessment and Plan (Free Text) Plan: This is a 43 year old female with a past medical history of a hysterectomy last September, who went to [facility] three days ago c/o severe abdominal pain and vomiting. The patient relates that there the surgeons found an ovary which was wrapping around her intestine and subsequently unwrapped it. She now presents to [facility] due to increasingly worse sharp, crampy abdominal pain centered in the middle of her abdomen and radiating to the left and right sides. A CT scan was performed in the ED which showed signs of an acute bowel obstruction. An NG tube was placed and so far has drained 300 cc of dark green material. The patient's labwork reveal significant bandemia of 29 and neutrophil % of 81.9. The patient was given Vancomycin and Zosyn in the ED, along with aggressive rehydration with normal saline. Dr. Kaur was called on for general surgery and Dr. Cortez was called for Skin Specialist given the involvement of her right ovary in the previous surgery. Patient being admitted to telemetry. 1) Acute small bowel obstruction - Admit to telemetry - Consultation with Dr. Kaur for surgery - Consultation with Dr. Cortez for hematology specialist - NG tube to low intermittent suction - Continue Zosyn 3.375 q 6 hours - CT scan of abd/pelvis to be repeated with po contrast as per surgery, now that the patient's vomiting has improved - BCX f/u - U/A, UCX stat - Dilaudid for pain control as per surgery - Zofran PRN for N/V - Continue Fluid resuscitation wth NS at 250 cc/hour - NPO with ice chips - f/u urine drug tox - Hold all po medications for now 2) DVT ppx - SCDs
--- NOTE | 2018-06-18 11:00 | CP.PCM.CON ---
History of Present Illness - History of Present Illness History of Present Illness: 43 F came to ER with vomiting and abdominal pain , no diarrhea, no fever. She recently had exploratory laparotomy for R ovarian torsion at [facility] in [facility]. Pt reports having abdominal pain since 06/14 went to [facility]. Found to have R ovarian torsion. Per Dr. Alves at [facility] there were adhesions of bowel on R retroperitoneal area., adnexal torsion with rutpured ovarian cyst. R oophrectomy and lysis of adhesion was performed. No bowel was resected. Path showed hemorrhagic ovarian cyst. Severe pain started on tuesday. Last BM or flatus was also on tuesday. Per Dr. Alves, pt was doing well post-operatively and was sent home yestesday. Pt contisues to have diffuse abdominal pain, multiple episodes of bilious vomiting. Abdomen is distended. NGT was placed in ED. Put out 300cc thick bilious output immediately. Pt reports relieved sx. CT was done w/o PO contrast bc pt couldn;t tolerate PO. Shows dilated loops of SB w air/fluids level . Post op changes. Pt was unable to tolerated PO and after NGT placement pt reports thirst and hunger. Saw the patient in ER, she had normal lactic acid level, BP was stable 135/67 , no fever, but due to significant bandemia and risk for impending sepsis , will admit to ICU for 24 hours and if remained stable, will transfer to med-surg floor by tomorrow. Review of Systems - Constitutional Constitutional: Fatigue - EENT Eyes: As Per HPI Ears: As Per HPI Nose/Mouth/Throat: As Per HPI - Cardiovascular Cardiovascular: Rapid Heart Rate - Respiratory Respiratory: As Per HPI - Gastrointestinal Gastrointestinal: Abdominal Pain, Vomiting - Genitourinary Genitourinary: As Per HPI - Reproductive: Female Reproductive:Female: As Per HPI Past Patient History - Infectious Disease Hx of Infectious Diseases: None - Past Medical History & Family History Past Medical History?: Yes - Past Social History Smoking Status: Light Smoker < 10 Cigarettes Daily Alcohol: None Drugs: Denies - CARDIAC Hx Cardiac Disorders: No - PULMONARY Hx Respiratory Disorders: No - NEUROLOGICAL Hx Multiple Sclerosis: Yes (dx 2011) Other/Comment: meningioma dx 2011. Neuro: Dr. 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 R oophrectomy 05/2018 - ANESTHESIA Hx Anesthesia: Yes Meds Allergies/Adverse Reactions: Allergies Allergy/AdvReac Type Severity Reaction Status Date / Time No Known Allergies Allergy Verified 06/18/18 06:00 - Medications Medications: Current Medications Acetaminophen (Tylenol 325mg Tab) 650 mg PO Q4 PRN PRN Reason: Fever >100.4 F Hydromorphone HCl (Dilaudid) 0.5 mg IVP Q4 PRN PRN Reason: Pain, moderate (4-7) Last Admin: 06/18/18 10:44 Dose: 0.5 mg Sodium Chloride (Sodium Chloride 0.9%) 1,000 mls @ 100 mls/hr IV .Q10H CLEMENTINE Stop: 06/19/18 08:57 Sodium Chloride (Sodium Chloride 0.9%) 1,000 mls @ 250 mls/hr IV .Q4H STA Stop: 06/18/18 13:38 Last Admin: 06/18/18 10:32 Dose: 250 mls/hr Piperacillin Sod/Tazobactam (Sod 3.375 gm/ Sodium Chloride) 100 mls @ 100 mls/ hr IVPB Q6 CLE[facility]INE PRN Reason: Protocol Ondansetron HCl (Zofran Inj) 4 mg IVP Q4 PRN PRN Reason: Nausea/Vomiting Pantoprazole Sodium (Protonix Inj) 40 mg IVP DAILY CLEMENTINE Physical Exam - Constitutional Appears: Non-toxic - Head Exam Head Exam: ATRAUMATIC - Eye Exam Eye Exam: Normal appearance - ENT Exam ENT Exam: Mucous Membranes Moist - Neck Exam Neck exam: Positive for: Full Rom - Respiratory Exam Respiratory Exam: NORMAL BREATHING PATTERN - Cardiovascular Exam Cardiovascular Exam: Tachycardia - GI/Abdominal Exam GI & Abdominal Exam: Distended, Tenderness Results - Vital Signs Recent Vital Signs: Last Vital Signs Temp 97.8 F 06/18/18 09:58 Pulse 113 H 06/18/18 10:44 Resp 23 06/18/18 10:44 BP 132/79 06/18/18 10:44 Pulse Ox 100 06/18/18 10:44 - Labs Result Diagrams: 06/18/18 06:34 06/18/18 06:34 Labs: Laboratory Results - last 24 hr 06/18/18 06/18/18 06/18/18 06:29 06:34 06:34 WBC 4.6 L RBC 3.33 L Hgb 11.5 L Hct 33.9 L MCV 101.7 H MCH 34.5 H MCHC 33.9 RDW 12.7 Plt Count 261 MPV 7.9 Neut % (Auto) 81.9 H Lymph % (Auto) 6.0 L Whitley % (Auto) 9.7 Eos % (Auto) 2.3 Baso % (Auto) 0.1 Neut # (Auto) 3.8 Lymph # (Auto) 0.3 L Whitley # (Auto) 0.4 Eos # (Auto) 0.1 Baso # (Auto) 0.0 Neutrophils % (Manual) 48 Band Neutrophils % 29 H* Lymphocytes % (Manual) 10 L Monocytes % (Manual) 11 H Eosinophils % (Manual) 2 Toxic Granulation Present Platelet Estimate Normal Hypochromasia (manual) Slight Macrocytosis (manual) Slight pO2 18 L VBG pH 7.39 VBG pCO2 50 VBG HCO3 26.3 VBG Total CO2 31.8 H VBG O2 Sat (Calc) 19.2 L VBG Base Excess 4.2 H VBG Potassium 3.9 Sodium 133.0 137 Chloride 98.0 97 L Glucose 124 H Lactate 1.5 FiO2 21.0 Potassium 4.0 Carbon Dioxide 27 Anion Gap 17 BUN 15 Creatinine 0.7 Est GFR ( Amer) > 60 Est GFR (Non-Af Amer) > 60 Random Glucose 114 H Calcium 8.6 Total Bilirubin 0.6 AST 37 H ALT 29 Alkaline Phosphatase 48 Total Protein 6.5 Albumin 3.6 Globulin 2.9 Albumin/Globulin Ratio 1.2 Lipase 25 Venous Blood Potassium 3.9 BBK History Checked 06/18/18 10:28 WBC RBC Hgb Hct MCV MCH MCHC RDW Plt Count MPV Neut % (Auto) Lymph % (Auto) Whitley % (Auto) Eos % (Auto) Baso % (Auto) Neut # (Auto) Lymph # (Auto) Whitley # (Auto) Eos # (Auto) Baso # (Auto) Neutrophils % (Manual) Band Neutrophils % Lymphocytes % (Manual) Monocytes % (Manual) Eosinophils % (Manual) Toxic Granulation Platelet Estimate Hypochromasia (manual) Macrocytosis (manual) pO2 VBG pH VBG pCO2 VBG HCO3 VBG Total CO2 VBG O2 Sat (Calc) VBG Base Excess VBG Potassium Sodium Chloride Glucose Lactate FiO2 Potassium Carbon Dioxide Anion Gap BUN Creatinine Est GFR ( Amer) Est GFR (Non-Af Amer) Random Glucose Calcium Total Bilirubin AST ALT Alkaline Phosphatase Total Protein Albumin Globulin Albumin/Globulin Ratio Lipase Venous Blood Potassium BBK History Checked No verified bt Assessment & Plan - Assessment and Plan (Free Text) Assessment: Dehydration Due to vomiting, poor po in take since surgery causing ST S/P laparotomy for ovarian torsion, POD# 4 Bandemia: R/O sepsis with possibility of intrabdomial infection Intra-abdominal hematoma Post Op Plan: Admit to ICu for hemodynamic monitoring for 24 H , in view of dehydration and bandemia Blood and urine culture, vancomycina and zosyn, given in ER, will continue IVF RL at 150 cc/h labs in am Surgery and OBG evaluation: done in ER PVD prophylax: SCDs, hold AC due to abdominal hematoma.
[2018-06-18 11:38] LABS: SQUAMOUS EPITHIAL 3 /hpf (0-5); URINE BACTERIA RARE (<OCC); URINE BILIRUBIN NEGATIVE (NEGATIVE); URINE BLOOD NEGATIVE (NEGATIVE); URINE CLARITY SLIGHTY-CLOUDY (Clear); URINE COLOR YELLOW (YELLOW); URINE GLUCOSE (UA) NEG (Normal); URINE LEUKOCYTE ESTERASE NEG Leu/uL (Negative); URINE PROTEIN 30 mg/dL (NEGATIVE); URINE UROBILINOGEN 0.2-1.0 mg/dL (0.2-1.0)
[2018-06-18 12:13] LABS: BARBITURATES, UR NEGATIVE (NEGATIVE); BENZODIAZEPINES, UR NEGATIVE (NEGATIVE); OPIATES, UR POSITIVE (NEGATIVE); PHENCYCLIDINE, UR NEGATIVE (NEGATIVE)
--- NOTE | 2018-06-18 12:15 | CT ---
Date of service: 06/18/2018 PROCEDURE: CT Abdomen and Pelvis without intravenous contrast HISTORY: intestinal obstruction COMPARISON: 06/18/2018 at 8:13 a.m. TECHNIQUE: Without contrast.. Contrast dose: 0 Radiation dose: Total exam DLP = 541.89 mGy-cm. This CT exam was performed using one or more of the following dose reduction techniques: Automated exposure control, adjustment of the mA and/or kV according to patient size, and/or use of iterative reconstruction technique. FINDINGS: LOWER THORAX: Small bilateral pleural effusion. Minimal bilateral lower lobe compressive atelectasis. LIVER: Unremarkable. No gross lesion or ductal dilatation. GALLBLADDER AND BILE DUCTS: Unremarkable. PANCREAS: Unremarkable. No gross lesion or ductal dilatation. SPLEEN: Unremarkable. ADRENALS: Unremarkable. No mass. KIDNEYS AND URETERS: Excreted contrast material seen within urinary collecting system has resolved of earlier contrast CT examination of same date. No mass or hydronephrosis. VASCULATURE: Unremarkable. No aortic aneurysm. BOWEL: Multiple dilated small bowel loops consistent with mechanical small bowel obstruction. There are collapsed loops of ileum identified. Precise point of transition is not evident from this examination. The colon is entirely collapsed. Oral contrast material is seen within jejunal loops. APPENDIX: Unremarkable. Normal appendix. PERITONEUM: Ascites. Extraperitoneal hematoma again noted anterior to the urinary bladder, approximately 4.3 x 7.1 x 6.3 cm. Likely postoperative hematoma. Inferior to this, there are bubbles of gas of uncertain significance. No foreign abscess identified. There is enlargement of the inferior rectus muscles likely as result of recent surgery. There is gas and small amount of scattered hematomas in the lower anterior abdominal wall at the site of incision. LYMPH NODES: Unremarkable. No enlarged lymph nodes. BLADDER: Poorly distended. REPRODUCTIVE: Status post hysterectomy. Probable residual cervix evident. BONES: No acute fracture. OTHER FINDINGS: None. IMPRESSION: Status post hysterectomy. Hematoma in lower anterior abdomen, likely extraperitoneal, anterior bladder base. Small amount of gas inferior to the hematoma common nonspecific. Enlargement of the inferior aspect of the rectus muscles likely due to recent surgery. Postoperative changes in anterior abdominal wall. Mechanical small-bowel obstruction again identified. Point of obstruction not clearly identifiable from this examination.
--- NOTE | 2018-06-18 13:49 | CARD ---
APPROVED REPORT Date of service: 06/18/2018 EKG Measurement Heart [id number] <Conclusion> Sinus tachycardia Otherwise normal ECG
[2018-06-18] MEDS: HYDROmorphone 1 mg/ml ISec IVP PRN ×3 (14:25→22:36)
[2018-06-18] MEDS: Lactated Ringer's 2,000 ML IV SCH ×2 (16:24→21:36)
[2018-06-18] MEDS: Piperacillin/Tazobact 3.375 GM in Sodium Chloride 0.9% 100 ML IVPB SCH ×2 (16:26→23:32)
[2018-06-18] MEDS: Lactated Ringer's 1,000 ML IV SCH (23:46)
[2018-06-19] MEDS: HYDROmorphone 1 mg/ml ISec IVP PRN ×2 (03:22→09:30)
[2018-06-19] MEDS: Piperacillin/Tazobact 3.375 GM in Sodium Chloride 0.9% 100 ML IVPB SCH ×4 (03:23→22:53)
[2018-06-19 05:40] LABS: BASO % 0.2 % (0.0-2.0); EOS # 0.1 K/uL (0.0-0.7); EOS % 2.6 % (0.0-4.0); HEMOGLOBIN 9.8 g/dL (12.0-16.0); LYMPH # 0.7 K/uL (1.0-4.3); LYMPH % 14.2 % (20.0-40.0); MEAN CELL VOLUME 102.1 fl (81.0-99.0); MEAN CORPUSCULAR HGB CONC 34.3 g/dL (33.0-37.0); MEAN PLATELET VOLUME 7.8 fl (7.2-11.7); MONO # 0.9 K/uL (0.0-0.8); MONO % 17.9 % (0.0-10.0); NEUT # 3.4 K/uL (1.8-7.0); NEUT % 65.1 % (50.0-75.0); NRBC % 0.1 % (0.0-0.0); RBC 2.79 Mil/uL (3.80-5.20); RED CELL DISTRIBUTION WIDTH 12.8 % (11.5-14.5); WHITE BLOOD COUNT 5.2 K/uL (4.8-10.8)
[2018-06-19 06:11] LABS: ALB/GLOB RATIO 1.1 (1.0-2.1); ALBUMIN 2.7 g/dL (3.5-5.0); ALT/SGPT 26 U/L (9-52); AST/SGOT 28 U/L (14-36); BLOOD UREA NITROGEN 10 mg/dl (7-17); CALCIUM 7.7 mg/dL (8.4-10.2); GFR NON-AFRICAN AMERICAN > 60
[2018-06-19] MEDS ORDERED: Potassium Chloride 20 mEq 100 ML IVPB ONE (07:35)
--- NOTE | 2018-06-19 07:46 | CP.PCM.PN ---
<Mary Parker - Last Filed: 06/19/18 09:13> Subjective - Date & Time of Evaluation Date of Evaluation: 06/19/18 Time of Evaluation: 07:43 - Subjective Subjective: General Surgery Dr. Kaur Pt S&E @bedside. NAEO. pt reports continued abd distention though slightly improved after NGT drainage. denies N/V, F/C. (-)flatus/BM NGT output: 1025cc x24hrs Objective - Vital Signs/Intake and Output Vital Signs (last 24 hours): Temp Pulse Resp BP Pulse Ox 98.5 F 98 H 20 138/69 98 06/19/18 00:00 06/19/18 06:00 06/19/18 06:00 06/19/18 06:00 06/19/18 06:00 Intake and Output: 06/19/18 06/19/18 06:59 18:59 Intake Total 2450 Output Total 1375 Balance 1075 - Medications Medications: Current Medications Acetaminophen (Tylenol 325 Mg Supp) 650 mg KS Q4 PRN PRN Reason: Pain, Mild (1-3) Hydromorphone HCl (Dilaudid) 0.5 mg IVP Q4 PRN PRN Reason: Pain, moderate (4-7) Last Admin: 06/19/18 05:27 Dose: 0.5 mg Hydromorphone HCl (Dilaudid) 1 mg IVP Q4 PRN PRN Reason: Pain, severe (8-10) Last Admin: 06/19/18 03:22 Dose: 1 mg Piperacillin Sod/Tazobactam (Sod 3.375 gm/ Sodium Chloride) 100 mls @ 100 mls/ hr IVPB Q6 CLEMENTINE PRN Reason: Protocol Last Admin: 06/19/18 03:23 Dose: 100 mls/hr Lactated Ringer's (Lactated Ringer's) 2,000 mls @ 999 mls/hr IV .Q2H1M [facility] Last Admin: 06/18/18 21:36 Dose: 999 mls/hr Lactated Ringer's (Lactated Ringer's) 1,000 mls @ 150 mls/hr IV .Q6H40M [facility] Last Admin: 06/18/18 23:46 Dose: 150 mls/hr Vancomycin HCl 1 gm/ Sodium (Chloride) 250 mls @ 166.667 mls/hr IVPB Q12H CLEMENTINE PRN Reason: Protocol Last Admin: 06/19/18 05:35 Dose: 166.667 mls/hr Potassium Chloride (Potassium Chloride 20 Meq/100 Ml) 100 mls @ 50 mls/hr IVPB ONCE ONE Stop: 06/19/18 09:34 Ondansetron HCl (Zofran Inj) 4 mg IVP Q4 PRN PRN Reason: Nausea/Vomiting Pantoprazole Sodium (Protonix Inj) 40 mg IVP DAILY [facility] Last Admin: 06/18/18 10:56 Dose: 40 mg Pneumococcal Polyvalent Vaccine (Pneumovax 23 Vaccine) 0.5 ml IM .ONCE ONE Stop: 06/19/18 09:01 - Labs Labs: 06/19/18 05:26 06/19/18 05:26 - Constitutional Appears: Non-toxic, No Acute Distress - Head Exam Head Exam: NORMAL INSPECTION - Eye Exam Eye Exam: Normal appearance - ENT Exam ENT Exam: Mucous Membranes Moist Additional comments: NGT in place - Respiratory Exam Respiratory Exam: NORMAL BREATHING PATTERN. absent: Accessory Muscle Use, Respiratory Distress - Cardiovascular Exam Cardiovascular Exam: Tachycardia, REGULAR RHYTHM. absent: Bradycardia - GI/Abdominal Exam GI & Abdominal Exam: Distended, Firm. absent: Guarding, Rebound Additional comments: suprapubic incision c/d/i steri-strips in place - Extremities Exam Extremities Exam: Normal Inspection - Neurological Exam Neurological Exam: Alert, Awake, Oriented x3 - Psychiatric Exam Psychiatric exam: Normal Affect, Normal Mood - Skin Skin Exam: Diaphoretic, Intact, Normal Color, Warm Assessment and Plan - Assessment and Plan (Free Text) Assessment: 43 y/o F w/ SBO likely 2/2 PSHx of hysterectomy, appendecyom, and ovarian cystectomy, s/p LSO on 06/15 @[facility] - NPO/IVF - NGT is LCS - monitor NGT drainage - monitor vitals - daily BMP - replete electrolytes PRN - pain management - encourage OOB to chair/IS use - possible OR if non-operative management ineffective Pt discussed w/ Dr. Natasha Parker DO PGY3 <Alexis Kaur - Last Filed: 06/19/18 15:36> Subjective - Date & Time of Evaluation Time of Evaluation: 13:00 - Subjective Subjective: Patient was seen and examined at the bedside. Agree with resident's note above. Objective - Vital Signs/Intake and Output Vital Signs (last 24 hours): Temp Pulse Resp BP Pulse Ox 99.2 F 103 H 1 L 135/80 92 L 06/19/18 12:00 06/19/18 12:00 06/19/18 12:00 06/19/18 12:00 06/19/18 12:00 Intake and Output: 06/19/18 06/19/18 06:59 18:59 Intake Total 2450 2300 Output Total 1375 800 Balance 1075 1500 - Medications Medications: Current Medications Acetaminophen (Tylenol 650 Mg Supp) 650 mg KS Q4 PRN PRN Reason: Pain, Mild (1-3) Hydromorphone HCl (Dilaudid) 1 mg IVP Q4 PRN PRN Reason: Pain, severe (8-10) Last Admin: 06/19/18 09:30 Dose: 1 mg Hydromorphone HCl (Dilaudid) 0.5 mg IVP Q5M PRN PRN Reason: Pain, moderate (4-7) Stop: 06/19/18 17:13 Hydromorphone HCl (Dilaudid 0.2 Mg/Ml Electrical Journeyman) 0 mg IV PRN PRN; Protocol PRN Reason: Pain, moderate (4-7) Piperacillin Sod/Tazobactam (Sod 3.375 gm/ Sodium Chloride) 100 mls @ 100 mls/ hr IVPB Q6 CLEMENTINE PRN Reason: Protocol Last Admin: 06/19/18 09:42 Dose: 100 mls/hr Lactated Ringer's (Lactated Ringer's) 2,000 mls @ 999 mls/hr IV .Q2H1M [facility] Last Admin: 06/18/18 21:36 Dose: 999 mls/hr Lactated Ringer's (Lactated Ringer's) 1,000 mls @ 150 mls/hr IV .Q6H40M [facility] Last Admin: 06/19/18 09:32 Dose: 150 mls/hr Vancomycin HCl 1 gm/ Sodium (Chloride) 250 mls @ 166.667 mls/hr IVPB Q12H CLEMENTINE PRN Reason: Protocol Last Admin: 06/19/18 05:35 Dose: 166.667 mls/hr Lactated Ringer's (Lactated Ringer's) 1,000 mls @ 75 mls/hr IV .[id number] [facility] Ondansetron HCl (Zofran Inj) 4 mg IVP Q4 PRN PRN Reason: Nausea/Vomiting Pantoprazole Sodium (Protonix Inj) 40 mg IVP DAILY [facility] Last Admin: 06/19/18 09:55 Dose: 40 mg - Labs Labs: 06/19/18 05:26 06/19/18 05:26 Assessment and Plan - Assessment and Plan (Free Text) Plan: - To OR for Exploratory Laparotomy possible bowel resection
[2018-06-19] MEDS ORDERED: Pneumococcal 23-Valent Vaccine IM ONE (09:00)
[2018-06-19] MEDS: Lactated Ringer's 1,000 ML IV SCH (09:32)
--- NOTE | 2018-06-19 10:01 | CP.PCM.PN ---
Subjective - Date & Time of Evaluation Date of Evaluation: 06/19/18 Time of Evaluation: 09:53 - Subjective Subjective: General Surgery Pt seen and examined this AM. She reports her abdominal pain is unchanged and severe in intensity. (-) Flatus, (-) BM. Pt with NGT in place. Pt denies nausea now and no vomiting. She also reports waking up this AM gasping for air. Pt denies chest pain, calf pain, or cough. Afebrile. Labs and vitals noted. NGT output 750ml documented + 150ml at bedside, 650 in emesis Pt has been consistently in the low 100s. O2 sat dropped to 90-92% at night per nurse's note and Nasal cannula placed and responding well maintaining saturation >95%. KUB noted, with (-) contrast in colon as read by me (NELL Momin) PE Gen: Pt laying in bed in moderate distress. Moaning. NGT in place with thick bilious output. Skin: warm and dry. Cardio: tachycardia, (-) murmurs, (-) clicks Lungs: CTA bilaterally, (-) tachypneic Abd: Firm, (+) guarding, generalized tenderness. Lower tranverse surgical incision with steri strips, clean and dry. (-) erythema. Extr: (-) calf tenderness bilaterally. A/P SBO Not resolving with conservative management Pt for OR today for Exploratory laparatomy Keep NPO Keep in NGT Monitor labs Objective - Vital Signs/Intake and Output Vital Signs (last 24 hours): Temp Pulse Resp BP Pulse Ox 98.3 F 101 H 16 144/87 95 06/19/18 08:00 06/19/18 08:00 06/19/18 08:00 06/19/18 08:00 06/19/18 08:00 Intake and Output: 06/19/18 06/19/18 06:59 18:59 Intake Total 2450 300 Output Total 1375 50 Balance 1075 250 - Medications Medications: Current Medications Acetaminophen (Tylenol 650 Mg Supp) 650 mg OH Q4 PRN PRN Reason: Pain, Mild (1-3) Hydromorphone HCl (Dilaudid) 0.5 mg IVP Q4 PRN PRN Reason: Pain, moderate (4-7) Last Admin: 06/19/18 05:27 Dose: 0.5 mg Hydromorphone HCl (Dilaudid) 1 mg IVP Q4 PRN PRN Reason: Pain, severe (8-10) Last Admin: 06/19/18 03:22 Dose: 1 mg Piperacillin Sod/Tazobactam (Sod 3.375 gm/ Sodium Chloride) 100 mls @ 100 mls/ hr IVPB Q6 CLEMENTINE PRN Reason: Protocol Last Admin: 06/19/18 03:23 Dose: 100 mls/hr Lactated Ringer's (Lactated Ringer's) 2,000 mls @ 999 mls/hr IV .Q2H1M [facility] Last Admin: 06/18/18 21:36 Dose: 999 mls/hr Lactated Ringer's (Lactated Ringer's) 1,000 mls @ 150 mls/hr IV .Q6H40M [facility] Last Admin: 06/18/18 23:46 Dose: 150 mls/hr Vancomycin HCl 1 gm/ Sodium (Chloride) 250 mls @ 166.667 mls/hr IVPB Q12H [facility] PRN Reason: Protocol Last Admin: 06/19/18 05:35 Dose: 166.667 mls/hr Ondansetron HCl (Zofran Inj) 4 mg IVP Q4 PRN PRN Reason: Nausea/Vomiting Pantoprazole Sodium (Protonix Inj) 40 mg IVP DAILY [facility] Last Admin: 06/18/18 10:56 Dose: 40 mg - Labs Labs: 06/19/18 05:26 06/19/18 05:26
[2018-06-19] MEDS ORDERED: Propofol 10 mg/ml Inj (20 ML) ONE (12:32)
[2018-06-19] MEDS ORDERED: Rocuronium 10 mg/ml (5 ml) ONE (12:33)
[2018-06-19] MEDS ORDERED: Succinylcholine 200 mg/10 ml Inj IV ONE (12:33)
[2018-06-19] MEDS ORDERED: Lidocaine 4% (Laryng-O-Jet) Kit MM ONE (12:33)
[2018-06-19] MEDS ORDERED: ePHEDrine 50 mg/ml Inj ONE (13:02)
[2018-06-19] MEDS ORDERED: Midazolam 2 MG/2 ML VIAL ONE (13:02)
[2018-06-19] MEDS ORDERED: Sodium Chloride 0.9% 500 ML IV ONE ×2 (13:10)
[2018-06-19] MEDS ORDERED: Lactated Ringer's 1,000 ML IV ONE ×2 (13:30)
[2018-06-19] MEDS ORDERED: Dexamethasone 4 mg/1 ml ONE (13:54)
[2018-06-19] MEDS ORDERED: Neostigmine 1:1000 (1 mg/ml) Inj ONE (14:18)
--- NOTE | 2018-06-19 14:18 | CP.PCM.PN ---
Subjective - Date & Time of Evaluation Date of Evaluation: 06/19/18 Time of Evaluation: 12:45 - Subjective Subjective: No fever complains of severe pain NGT in place - drained approx 400ml bilious material since change of shift this am no CP no SOB Plan for Explor Lap today Objective - Vital Signs/Intake and Output Vital Signs (last 24 hours): Temp Pulse Resp BP Pulse Ox 99.2 F 103 H 1 L 135/80 92 L 06/19/18 12:00 06/19/18 12:00 06/19/18 12:00 06/19/18 12:00 06/19/18 12:00 Intake and Output: 06/19/18 06/19/18 06:59 18:59 Intake Total 2450 1300 Output Total 1375 300 Balance 1075 1000 - Medications Medications: Current Medications Acetaminophen (Tylenol 650 Mg Supp) 650 mg CO Q4 PRN PRN Reason: Pain, Mild (1-3) Hydromorphone HCl (Dilaudid) 0.5 mg IVP Q4 PRN PRN Reason: Pain, moderate (4-7) Last Admin: 06/19/18 05:27 Dose: 0.5 mg Hydromorphone HCl (Dilaudid) 1 mg IVP Q4 PRN PRN Reason: Pain, severe (8-10) Last Admin: 06/19/18 09:30 Dose: 1 mg Piperacillin Sod/Tazobactam (Sod 3.375 gm/ Sodium Chloride) 100 mls @ 100 mls/ hr IVPB Q6 [facility]MENTINE PRN Reason: Protocol Last Admin: 06/19/18 09:42 Dose: 100 mls/hr Lactated Ringer's (Lactated Ringer's) 2,000 mls @ 999 mls/hr IV .Q2H1M [facility] Last Admin: 06/18/18 21:36 Dose: 999 mls/hr Lactated Ringer's (Lactated Ringer's) 1,000 mls @ 150 mls/hr IV .Q6H40M [facility] Last Admin: 06/19/18 09:32 Dose: 150 mls/hr Vancomycin HCl 1 gm/ Sodium (Chloride) 250 mls @ 166.667 mls/hr IVPB Q12H [facility]INE PRN Reason: Protocol Last Admin: 06/19/18 05:35 Dose: 166.667 mls/hr Ondansetron HCl (Zofran Inj) 4 mg IVP Q4 PRN PRN Reason: Nausea/Vomiting Pantoprazole Sodium (Protonix Inj) 40 mg IVP DAILY [facility] Last Admin: 06/19/18 09:55 Dose: 40 mg - Labs Labs: 06/19/18 05:26 06/19/18 05:26 - Constitutional Appears: In Acute Distress - Head Exam Head Exam: ATRAUMATIC, NORMAL INSPECTION, NORMOCEPHALIC - Eye Exam Eye Exam: EOMI, Normal appearance, PERRL Pupil Exam: NORMAL ACCOMODATION - ENT Exam ENT Exam: Mucous Membranes Dry, Normal External Ear Exam - Neck Exam Neck Exam: Full ROM. absent: Meningismus - Respiratory Exam Respiratory Exam: NORMAL BREATHING PATTERN. absent: Respiratory Distress - Cardiovascular Exam Cardiovascular Exam: REGULAR RHYTHM, +S1, +S2 - GI/Abdominal Exam GI & Abdominal Exam: Distended, Guarding, Tenderness, Diminished Bowel Sounds, Rebound - Extremities Exam Extremities Exam: Full ROM, Normal Capillary Refill, Normal Inspection. absent : Calf Tenderness, Joint Swelling, Pedal Edema - Back Exam Back Exam: Full ROM, NORMAL INSPECTION. absent: CVA tenderness (L), CVA tenderness (R) - Neurological Exam Neurological Exam: Alert, Awake, Normal Gait Neuro motor strength exam: Left Upper Extremity: 5, Right Upper Extremity: 5, Left Lower Extremity: 5, Right Lower Extremity: 5 - Psychiatric Exam Psychiatric exam: Normal Affect, Normal Mood - Skin Skin Exam: Dry, Normal Color, Warm Assessment and Plan - Assessment and Plan (Free Text) Assessment: This is a 43 year old female with a past medical history of a hysterectomy last September, who went to [facility] three days prior to admission c/o severe abdominal pain and vomiting. The patient relates that there the surgeons found an ovary which was wrapping around her intestine and subsequently unwrapped it. She now presents to [facility] due to increasingly worse sharp, crampy abdominal pain centered in the middle of her abdomen and radiating to the left and right sides. A CT scan was performed in the ED which showed signs of an acute bowel obstruction. An NG tube was placed d- rained 300 cc of dark green material. The patient's labwork reveal significant bandemia of 29 and neutrophil % of 81.9. The patient was given Vancomycin and Zosyn in the ED, along with aggressive rehydration with normal saline. Dr. Kaur was called on for general surgery and Dr. Cortez was called for Business Computers Teacher given the involvement of her right ovary in the previous surgery. Patient being admitted to telemetry. 1) Acute small bowel obstruction - Consultation with Dr. Kaur - Plan for Explor Lap - NG tube to low intermittent suction - Continue Zosyn 3.375 q 6 hours - Dilaudid for pain control - Zofran PRN for N/V - Continue Fluid resuscitation - NPO with ice chips - Hold all po medications for now 2) DVT ppx - SCDs for now
--- NOTE | 2018-06-19 15:12 | PCM.SURG1 ---
Surgeon's Initial Post Op Note - Surgeon's Notes Surgeon: Dr. Kaur Research Biologist: Dr. Bailey, Dr. Soler PGY4; Dr. Parker PGY3 Type of Anesthesia: General Endo Pre-Operative Diagnosis: Small Bowel Obstruction Operative Findings: Internal Hernia containing loop of distal small bowel Post-Operative Diagnosis: same Operation Performed: Exploratory Laparotomy. Lysis of adhesions. Reduction of Internal Hernia. Small Bowel Resection with primary anastomosis. Closure of mesenteric defect Specimen/Specimens Removed: small bowel Estimated Blood Loss: EBL {In ML}: 10 Blood Products Given: N/A Drains Used: No Drains Post-Op Condition: Good Date of Surgery/Procedure: 06/19/18 Time of Surgery/Procedure: 15:13
[2018-06-19] MEDS ORDERED: Lactated Ringer's 1,000 ML IV SCH (15:15)
[2018-06-19] MEDS: HYDROmorphone 0.5 mg/0.5 ml ISec IVP PRN ×4 (15:33→16:20)
[2018-06-19] MEDS ORDERED: HYDROmorphone 1 mg/ml ISec ONE ×3 (15:36→16:03)
[2018-06-19] MEDS ORDERED: HYDROmorphone 1 mg/ml ISec IVP STA ×2 (20:24→21:45)
[2018-06-20] MEDS: Lactated Ringer's 1,000 ML IV SCH ×3 (00:16→13:53)
--- NOTE | 2018-06-20 03:43 | PN ---
DATE: 06/19/2018 LOCATION: The patient in ICU, bed 433. TIME SPENT: 45 minutes. The patient is seen and evaluated at the bedside. Past medical, surgical, social and family history reviewed. SUBJECTIVE: A 43-year-old female with history significant for MS, diagnosed in 2011; meningioma of brain, diagnosed in 2011, not on any treatment; facial MRSA lesion; with appendectomy in 2007; partial hysterectomy in 09/2017 secondary to uterine bleed from large leiomyomas. The patient presented to a hospital at [place] with torsion of right ovary, underwent resection of the right ovarian cyst, lysis of adhesions. Presented to ER on 06/18/2018, complaining of pain associated with vomiting. Noted to have small bowel obstruction. Seen by General Surgery consult. Underwent exploratory laparotomy under general anesthesia. Findings noted. Underwent lysis of adhesions, reduction of internal hernia, small bowel resection with primary anastomosis and closure of mesenteric defect. Estimated blood loss 10 ml. Received 1500 mL of IV fluid. Intraoperative course uneventful. Extubated in the recovery room. Remains under the effect of general anesthesia. PHYSICAL EXAMINATION: VITAL SIGNS: Temperature 98, heart rate 86, blood pressure 150/92, on oxygen supplement, saturating 93%. HEAD, EYES, EARS, NOSE AND THROAT: Pupils are reactive. Conjunctivae are pink. Sclerae are white. NECK: Supple. Trachea central. CHEST: Bilateral breath sounds, diminished in intensity. Clear to auscultation. HEART: Rhythm regular. S1, S2 normal. ABDOMEN: Bowel sounds present. Dressing intact. Bowel sounds reduced in intensity. EXTREMITIES: No clubbing, cyanosis, or edema. NEUROLOGIC EXAMINATION: As noted, recovering from the effect of anesthesia. CURRENT MEDICATIONS: Include Tylenol 650 mg suppository, Dilaudid 1 mg IV every 4 hours, Ringer's lactate at 150 mL per hour, Zofran 4 mg IV every 4 hours p.r.n., Protonix 40 IV daily, Zosyn 3.375 gm IV every 6 hours, vancomycin 1 gm IV every 12 hours. LABORATORY DATA: WBC 5.2, hemoglobin 9.8, hematocrit 28.5, platelet count 274. Preop SMA-7: Sodium 137, potassium 3.7, chloride 104, CO2 of 22, blood urea nitrogen 10, creatinine 0.5, random glucose 78, calcium 7.7. Total bilirubin 0.4, AST 28, ALT 24, alkaline phosphatase 33, total protein 5.2, albumin 2.7. Urinalysis is negative. Toxicology screen positive for opiates. Microbiology: Urine culture, no growth reported. Blood culture, no growth reported. CT abdomen and pelvis done on 06/18/2018, status post hysterectomy, hematoma in the lower anterior abdomen likely extraperitoneal, anterior bladder base, small amount of gas inferior to the hematoma, enlargement of the inferior aspect of the rectus muscle likely due to recent surgery, postoperative changes in the anterior abdominal wall, mechanical small bowel obstruction. IMPRESSION: A 43-year-old female with history of multiple sclerosis, meningioma, leiomyoma, status post hysterectomy, status post resection of the right ovary secondary to torsion. Presenting with small bowel obstruction, underwent exploratory laparotomy, lysis of adhesions, repair of small bowel obstruction and end-to-end colostomy, extubated, hemodynamically stable. Closely monitor for hemodynamic stability. Follow up postoperative laboratories. Continue current antibiotics, analgesics, deep venous thrombosis and gastrointestinal prophylaxis, incentive spirometry to prevent postoperative atelectasis. Kelechi Navarro MD
[2018-06-20] MEDS: Piperacillin/Tazobact 3.375 GM in Sodium Chloride 0.9% 100 ML IVPB SCH ×4 (04:04→21:25)
[2018-06-20 06:08] LABS: EOS % 0.1 % (0.0-4.0); HEMOGLOBIN 9.4 g/dL (12.0-16.0); LYMPH # 0.6 K/uL (1.0-4.3); LYMPH % 6.4 % (20.0-40.0); MEAN CORPUSCULAR HEMOGLOBIN 33.5 pg (27.0-31.0); MEAN CORPUSCULAR HGB CONC 33.2 g/dL (33.0-37.0); MEAN PLATELET VOLUME 7.4 fl (7.2-11.7); MONO # 1.2 K/uL (0.0-0.8); NEUT # 7.3 K/uL (1.8-7.0); NEUT % 80.5 % (50.0-75.0); RBC 2.81 Mil/uL (3.80-5.20); RED CELL DISTRIBUTION WIDTH 13.1 % (11.5-14.5); WHITE BLOOD COUNT 9.1 K/uL (4.8-10.8)
[2018-06-20 06:26] LABS: BLOOD UREA NITROGEN 9 mg/dl (7-17); CALCIUM 7.9 mg/dL (8.4-10.2); GFR NON-AFRICAN AMERICAN > 60
[2018-06-20] MEDS ORDERED: HYDROmorphone 1 mg/ml ISec IVP STA (06:42)
--- NOTE | 2018-06-20 07:24 | CP.PCM.PN ---
Subjective - Date & Time of Evaluation Date of Evaluation: 06/20/18 Time of Evaluation: 07:22 - Subjective Subjective: General Surgery - Dr. Kaur Pt S&E. Pt transferred to [facility] from ICU last night. She states that she was up most of the night waiting for AUTOMOTIVE PAINT TECHNICIAN pump to arrive but overall she feels much better post-op. She now is experiencing expected incisional pain, but states the pain she had before is gone. She denies any Nausea/vomting/Fever/Chills/SOb /Chest pain. NGT in place with 500cc bilious drainage since OR. Powers catheter w/ 1200cc urine since surgery. Objective - Vital Signs/Intake and Output Vital Signs (last 24 hours): Temp Pulse Resp BP Pulse Ox 98.4 F 104 H 18 134/80 96 06/20/18 04:57 06/20/18 04:57 06/20/18 04:57 06/20/18 04:57 06/20/18 04:57 Intake and Output: 06/20/18 06/20/18 06:59 18:59 Intake Total 600 Output Total 900 Balance -300 - Medications Medications: Current Medications Acetaminophen (Tylenol 650 Mg Supp) 650 mg [place] Q4 PRN PRN Reason: Pain, Mild (1-3) Hydromorphone HCl (Dilaudid) 1 mg IVP Q4 PRN PRN Reason: Pain, severe (8-10) Last Admin: 06/19/18 09:30 Dose: 1 mg Hydromorphone HCl (Dilaudid 0.2 Mg/Ml Spiritual Advisor) 0 mg IV PRN PRN; Protocol PRN Reason: Pain, moderate (4-7) Last Admin: 06/20/18 04:52 Dose: 6 mg Piperacillin Sod/Tazobactam (Sod 3.375 gm/ Sodium Chloride) 100 mls @ 100 mls/ hr IVPB Q6 [facility] PRN Reason: Protocol Last Admin: 06/20/18 04:04 Dose: 100 mls/hr Lactated Ringer's (Lactated Ringer's) 2,000 mls @ 999 mls/hr IV .Q2H1M [facility] Last Admin: 06/18/18 21:36 Dose: 999 mls/hr Vancomycin HCl 1 gm/ Sodium (Chloride) 250 mls @ 166.667 mls/hr IVPB Q12H [facility] PRN Reason: Protocol Last Admin: 06/20/18 05:43 Dose: 166.667 mls/hr Lactated Ringer's (Lactated Ringer's) 1,000 mls @ 125 mls/hr IV .Q8H [facility] Last Admin: 06/20/18 02:23 Dose: Not Given Ondansetron HCl (Zofran Inj) 4 mg IVP Q4 PRN PRN Reason: Nausea/Vomiting Pantoprazole Sodium (Protonix Inj) 40 mg IVP DAILY [facility] Last Admin: 06/19/18 09:55 Dose: 40 mg - Labs Labs: 06/20/18 05:00 06/20/18 05:00 - Constitutional Appears: No Acute Distress - Head Exam Head Exam: ATRAUMATIC, NORMAL INSPECTION, NORMOCEPHALIC - Respiratory Exam Respiratory Exam: NORMAL BREATHING PATTERN. absent: Respiratory Distress - Cardiovascular Exam Cardiovascular Exam: REGULAR RHYTHM - GI/Abdominal Exam GI & Abdominal Exam: Soft, Tenderness (appropriate ttp around incision). absent : Distended, Firm, Guarding, Rigid, Rebound - Neurological Exam Neurological Exam: Alert, Oriented x3 - Psychiatric Exam Psychiatric exam: Normal Affect, Normal Mood - Skin Skin Exam: Dry, Intact Assessment and Plan - Assessment and Plan (Free Text) Assessment: 43F POD#1 s/p Ex-Lap, lysis of adhesions, reduction of internal hernia, small bowel resection -Continue NGT to low continuous suction, may clamp periodically for 30 min intervals of ambulation -NPO with sips/chips -D/C Powers -Continue IVF, IV abx -Pain control with AUTOMOTIVE PAINT TECHNICIAN -Encourage OOB/Ambulation -GI/DVT Prophylaxis DW Dr. Natasha Soler PGY4
--- NOTE | 2018-06-20 08:41 | OP ---
PROCEDURE DATE: 06/19/18 PREOPERATIVE DIAGNOSIS: Small bowel obstruction. POSTOPERATIVE DIAGNOSES: Small bowel obstruction and internal hernia. PROCEDURES: Exploratory laparotomy, reduction of the internal hernia, small bowel resection. SURGEON: Alexis Kaur MD DIRECTOR OF HEMOPHILIA: Leo. SECOND DIRECTOR OF HEMOPHILIA: THIRD DIRECTOR OF HEMOPHILIA: Mary Parker DO ANESTHESIOLOGIST: Mary Meredith MD ANESTHESIA: General and endotracheal intubation. INTRAVENOUS FLUIDS: Crystalloids. ESTIMATED BLOOD LOSS: 25 mL. INTRAOPERATIVE FINDINGS: Internal hernia and small bowel obstruction as well as nonviable portion of the small bowel. SPECIMEN: Small bowel. BRIEF HISTORY: Ms. Duncan is a very pleasant 43-year-old female who came to the hospital following her discharge from [facility] approximately 12 hours after discharge from [facility]. The patient presented to [facility] and underwent right ovarian cystectomy, and subsequent to that was discharged from the hospital few days after the surgery and presented to [facility] with symptoms of small bowel obstruction. Upon further investigation, the patient was found to have small bowel obstruction on a CAT scan. At the time of presentation to the hospital, the patient was severely dehydrated and tachycardic, so the patient was resuscitated overnight with some aggressive IV fluid resuscitation and subsequent to that was taken to the operating room for above-stated procedure. All the risks and benefits of the procedure were explained to the patient and with the patient having a full understanding of all the risks and benefits involved, informed consent was obtained, and the patient was taken to the operating room for above-stated procedure. DESCRIPTION OF PROCEDURE: The patient was brought into the operating room and placed supine on the operating table. Bilateral Flowtron boots were applied to the patient's lower extremities. After successful induction of anesthesia and successful endotracheal intubation by the anesthesia team, Powers catheter was inserted into the patient's urinary bladder. Subsequent to that, the patient's abdomen was prepped with ChloraPrep stick and draped in a standard surgical fashion. Prior to the beginning of procedure, a time-out was called in the room, and everyone in the room were in agreement. Using a 10-blade scalpel knife, approximately 15-cm incision was made in the midline extending above the umbilicus going around the umbilicus on the right side of the patient and extending approximately 4 cm below the umbilicus. Once this was accomplished, using electrical cautery, the subcutaneous tissues were opened up. At this point in time, the fascial layer was encountered. A small jair was made in the fascia. Subsequent to that, two Bria clamps were placed on both ends of the fascia. Subsequent to that, fascia was opened up a little more. At this point in time, peritoneal layer was encountered. Peritoneum was clamped with two Bria clamps and transacted with Metzenbaum scissors. At this point in time, we visualized some serosanguineous ascites that was suctioned out approximately 700 mL of that. At this point in time, the entire length of the incision was opened up, and the fascial layer was opened up. Once this was accomplished, the small bowel was exteriorized. Bowel was run all the way from ligament of Trietz to the cecum. Small bowel appeared to be severely distended, and upon investigation of the small bowel closer to the terminal ileum, there appeared to be adhesive band and the loop of ileum herniated through the adhesive band causing the small bowel obstruction. At this point in time, the internal hernia was reduced, and adhesive band was cut. Once this was accomplished, the bowel was inspected. There appeared to be two areas of bowel that were not viable. On those areas that were stuck in the internal hernia. So, at this point in time, we made a decision to resect that portion of the small bowel. A small jair was made in the mesentery with electrical cautery, and subsequent to that, a Bria clamp was passed through the mesenteric defect. This was done slightly proximal to the area of necrosed bowel. At this point in time, blue load 75-mm MARC stapler was passed through the mesenteric defect, and the stapler was fired. Then, attention was turned to the distal end of the bowel where the bowel that was nonviable. A small jair was made in the mesentery with electrical cautery. Subsequent to that, Bria clamp was passed through the mesenteric defect and subsequent to that, another blue load of 75-mm MARC stapler was inserted into mesenteric defect, and the stapler was fired. At this point in time, a mesentery of the small bowel was taken over Impact LigaSure device. Once the small bowel was completely freed up, it was passed off to the [facility] as a specimen. At this point in time, the proximal and distal ends of the small bowel were approximated with interrupted 3-0 silk suture on a SH needle in a [id number] fashion. Once this was accomplished, two enterotomies were made in the proximal and distal ends. Subsequent to that, two Allis clamps were placed into the lumen of the bowel. At this point in time, another 75-mm blue load MARC stapler was inserted into both ends of the bowel and stapler was fired. At this point in time, the defect was closed with blue load TA 60 mm stapler. Once this was accomplished, a running 3-0 chromic suture was placed to the staple line. At this point in time, anastomosis was inspected and appeared to be satisfactory. Mesenteric defect was closed with two interrupted 3-0 Vicryl sutures in a [id number] fashion and one interrupted 3-0 Vicryl suture. Once this was accomplished, the entire length of the small bowel was inspected all the way down to the ileocecal valve, and the rest of the bowel appeared to be viable. At this point in time, the rest of the bowel was reduced back into the abdominal cavity. Subsequent to that, two Rebecca clamps were placed on both ends of the fascia. The fascial layer was closed with #1 looped PDS, one from above and one from below and tied in middle. Once this was accomplished, the wound was washed and dried. The skin was approximated with wisam. At this point in time, the patient's abdomen was washed and dried, and a clean dressing was applied to the site of the incision. The patient was successfully extubated by the anesthesia team, transferred to the [facility], and taken to the recovery room in a stable condition. At the end of the procedure, all instrument counts, needles, and sponges were correct. Alexis Kaur MD SAKINA
--- NOTE | 2018-06-20 08:47 | RAD ---
Date of service: 06/19/2018 HISTORY: Small-bowel obstruction. COMPARISON: 06/18/2018. CT abdomen and pelvis. FINDINGS: BOWEL: Persistent dilated proximal and mid small bowel loops consistent with distal small bowel obstruction. No significant free air identified in the colon. BONES: Normal. OTHER FINDINGS: None. IMPRESSION: Persistent approximately stable small bowel obstruction.
[2018-06-20] MEDS ORDERED: Enoxaparin 40 mg Syringe SC SCH (09:00)
--- NOTE | 2018-06-20 10:00 | CP.PCM.PN ---
Subjective - Date & Time of Evaluation Date of Evaluation: 06/20/18 Time of Evaluation: 09:56 - Subjective Subjective: General Surgery Pt seen and examined this AM. Transferred out of the ICU last night. She reports feeling significantly better s/p surgery regarding abdominal pain. She denies N/V. (-) flatus, (-) BM. Pt continues with NGT. Labs and Vitals noted. Urine output 1200ml overnight, since 7am today 400ml. NGT output 500 ml overnight, since 7am 250ml bilious drainage. PE Gen: Pt laying in bed with NGT in no distress. Skin: warm and dry Cardio: (+) tachycardic (-) murmur Lungs: CTA bilaterally Abd: Soft, mildly distended, (+) tenderness along midline incision. Abdominal binder in place. : leach in place with light yellow urine Extr: (-) calf tenderness bilaterally A/P SBO POD 1 s/p exploratory lap, reduction of internal hernia, small bowel resection, lysis of adhesions. Continue NPO with ice chips Encourage IS Encourage OOB Remove leach Monitor NGT output Monitor labs Objective - Vital Signs/Intake and Output Vital Signs (last 24 hours): Temp Pulse Resp BP Pulse Ox 97.5 F L 94 H 18 146/89 97 06/20/18 08:02 06/20/18 08:02 06/20/18 08:02 06/20/18 08:02 06/20/18 08:02 Intake and Output: 06/20/18 06/20/18 06:59 18:59 Intake Total 600 1000 Output Total 900 840 Balance -300 160 - Medications Medications: Current Medications Acetaminophen (Tylenol 650 Mg Supp) 650 mg ID Q4 PRN PRN Reason: Pain, Mild (1-3) Enoxaparin Sodium (Lovenox) 40 mg SC DAILY [facility] PRN Reason: Protocol Hydromorphone HCl (Dilaudid) 1 mg IVP Q4 PRN PRN Reason: Pain, severe (8-10) Last Admin: 06/19/18 09:30 Dose: 1 mg Hydromorphone HCl (Dilaudid 0.2 Mg/Ml Sponge Diver) 0 mg IV PRN PRN; Protocol PRN Reason: Pain, moderate (4-7) Last Admin: 06/20/18 04:52 Dose: 6 mg Piperacillin Sod/Tazobactam (Sod 3.375 gm/ Sodium Chloride) 100 mls @ 100 mls/ hr IVPB Q6 [facility] PRN Reason: Protocol Last Admin: 06/20/18 04:04 Dose: 100 mls/hr Lactated Ringer's (Lactated Ringer's) 2,000 mls @ 999 mls/hr IV .Q2H1M [facility] Last Admin: 06/18/18 21:36 Dose: 999 mls/hr Vancomycin HCl 1 gm/ Sodium (Chloride) 250 mls @ 166.667 mls/hr IVPB Q12H [facility] PRN Reason: Protocol Last Admin: 06/20/18 05:43 Dose: 166.667 mls/hr Lactated Ringer's (Lactated Ringer's) 1,000 mls @ 125 mls/hr IV .Q8H [facility] Last Admin: 06/20/18 02:23 Dose: Not Given Ondansetron HCl (Zofran Inj) 4 mg IVP Q4 PRN PRN Reason: Nausea/Vomiting Pantoprazole Sodium (Protonix Inj) 40 mg IVP DAILY [facility] Last Admin: 06/19/18 09:55 Dose: 40 mg - Labs Labs: 06/20/18 05:00 06/20/18 05:00
[2018-06-20] MEDS: Enoxaparin 40 mg Syringe SC SCH (13:52)
[2018-06-20] MEDS: HYDROmorphone 0.5 mg/0.5 ml ISec IVP PRN ×3 (17:14→21:20)
--- NOTE | 2018-06-20 18:02 | CP.PCM.PN ---
Subjective - Date & Time of Evaluation Date of Evaluation: 06/20/18 Time of Evaluation: 10:00 - Subjective Subjective: No fever Pain controlled on QUARTER BACKER pump no flatus, no BM NGT in place with bilious drainage denies CP no SOB Objective - Vital Signs/Intake and Output Vital Signs (last 24 hours): Temp Pulse Resp BP Pulse Ox 97.8 F 92 H 16 148/91 H 95 06/20/18 16:00 06/20/18 16:00 06/20/18 16:00 06/20/18 16:00 06/20/18 16:00 Intake and Output: 06/20/18 06/20/18 06:59 18:59 Intake Total 600 1000 Output Total 900 840 Balance -300 160 - Medications Medications: Current Medications Acetaminophen (Tylenol 650 Mg Supp) 650 mg [place] Q4 PRN PRN Reason: Pain, Mild (1-3) Enoxaparin Sodium (Lovenox) 40 mg SC DAILY [facility] PRN Reason: Protocol Last Admin: 06/20/18 13:52 Dose: 40 mg Hydromorphone HCl (Dilaudid) 1 mg IVP Q4 PRN PRN Reason: Pain, severe (8-10) Last Admin: 06/20/18 17:14 Dose: 1 mg Piperacillin Sod/Tazobactam (Sod 3.375 gm/ Sodium Chloride) 100 mls @ 100 mls/ hr IVPB Q6 [facility] PRN Reason: Protocol Last Admin: 06/20/18 17:15 Dose: 100 mls/hr Lactated Ringer's (Lactated Ringer's) 2,000 mls @ 999 mls/hr IV .Q2H1M [facility] Last Admin: 06/18/18 21:36 Dose: 999 mls/hr Vancomycin HCl 1 gm/ Sodium (Chloride) 250 mls @ 166.667 mls/hr IVPB Q12H [facility] PRN Reason: Protocol Last Admin: 06/20/18 17:15 Dose: 166.667 mls/hr Lactated Ringer's (Lactated Ringer's) 1,000 mls @ 125 mls/hr IV .Q8H [facility] Last Admin: 06/20/18 13:53 Dose: 125 mls/hr Ondansetron HCl (Zofran Inj) 4 mg IVP Q4 PRN PRN Reason: Nausea/Vomiting Pantoprazole Sodium (Protonix Inj) 40 mg IVP DAILY [facility] Last Admin: 06/20/18 10:13 Dose: 40 mg - Labs Labs: 06/20/18 05:00 06/20/18 05:00 - Constitutional Appears: In Acute Distress - Head Exam Head Exam: ATRAUMATIC, NORMAL INSPECTION, NORMOCEPHALIC - Eye Exam Eye Exam: EOMI, Normal appearance, PERRL Pupil Exam: NORMAL ACCOMMODATION - ENT Exam ENT Exam: Mucous Membranes Dry, Normal External Ear Exam - Neck Exam Neck Exam: Full ROM. absent: Meningismus - Respiratory Exam Respiratory Exam: NORMAL BREATHING PATTERN. absent: Respiratory Distress - Cardiovascular Exam Cardiovascular Exam: REGULAR RHYTHM, +S1, +S2 - GI/Abdominal Exam GI & Abdominal Exam: surgical wound with dressing , + Tenderness, Diminished Bowel Sounds - Extremities Exam Extremities Exam: Full ROM, Normal Capillary Refill, Normal Inspection. absent : Calf Tenderness, Joint Swelling, Pedal Edema - Back Exam Back Exam: Full ROM, NORMAL INSPECTION. absent: CVA tenderness (L), CVA tenderness (R) - Neurological Exam Neurological Exam: Alert, Awake, Normal Gait Neuro motor strength exam: Left Upper Extremity: 5, Right Upper Extremity: 5, Left Lower Extremity: 5, Right Lower Extremity: 5 - Psychiatric Exam Psychiatric exam: Normal Affect, Normal Mood - Skin Skin Exam: Dry, Normal Color, Warm Assessment and Plan - Assessment and Plan (Free Text) Assessment: This is a 43 year old female with a past medical history of a hysterectomy last September, who went to [facility] three days prior to admission c/o severe abdominal pain and vomiting. The patient relates that there the surgeons found an ovary which was wrapping around her intestine and subsequently unwrapped it. She now presents to [facility] due to increasingly worse sharp, crampy abdominal pain centered in the middle of her abdomen and radiating to the left and right sides. A CT scan was performed in the ED which showed signs of an acute bowel obstruction. An NG tube was placed drained dark green bilious material. The patient's labwork reveal significant bandemia of 29 and neutrophil % of 81.9. The patient was started on IV Vancomycin and Zosyn along with aggressive rehydration with normal saline. Dr. Kaur was called on for general surgery and Dr. Cortez was called for Grades 1 Thru 6 Visiting Teacher 1) Acute small bowel obstruction s/p Explor Lap - Adhesiolysis ,Reduction of Internal Hernia, Bowel resection with end to end anastomosis - Consultation with Dr. Kaur - NG tube to low intermittent suction - Continue Zosyn 3.375 q 6 hours and IV Vanco - Dilaudid IV prn for pain control , d/c QUARTER BACKER pump - Zofran PRN for N/V - Continue Fluid resuscitation - NPO -Hold all po medications for now - 2) DVT ppx Lovenox
[2018-06-21] MEDS: HYDROmorphone 0.5 mg/0.5 ml ISec IVP PRN ×5 (01:09→20:31)
[2018-06-21] MEDS: Lactated Ringer's 1,000 ML IV SCH ×3 (03:00→17:33)
[2018-06-21] MEDS: Piperacillin/Tazobact 3.375 GM in Sodium Chloride 0.9% 100 ML IVPB SCH ×4 (03:42→21:50)
[2018-06-21 05:30] LABS: BASO % 0.4 % (0.0-2.0); EOS # 0.2 K/uL (0.0-0.7); EOS % 1.6 % (0.0-4.0); LYMPH # 1.3 K/uL (1.0-4.3); LYMPH % 10.3 % (20.0-40.0); MEAN CELL VOLUME 100.4 fl (81.0-99.0); MEAN CORPUSCULAR HEMOGLOBIN 33.9 pg (27.0-31.0); MEAN CORPUSCULAR HGB CONC 33.7 g/dL (33.0-37.0); MEAN PLATELET VOLUME 7.3 fl (7.2-11.7); MONO # 1.3 K/uL (0.0-0.8); MONO % 10.7 % (0.0-10.0); NEUT # 9.6 K/uL (1.8-7.0); NRBC % 0.1 % (0.0-0.0); RBC 2.65 Mil/uL (3.80-5.20); RED CELL DISTRIBUTION WIDTH 12.9 % (11.5-14.5); WHITE BLOOD COUNT 12.4 K/uL (4.8-10.8)
[2018-06-21 06:47] LABS: BLOOD UREA NITROGEN 7 mg/dl (7-17); CALCIUM 7.8 mg/dL (8.4-10.2); GFR NON-AFRICAN AMERICAN > 60
[2018-06-21] MEDS ORDERED: Potassium CL 10 MEQ/50 ML 50 ML IVPB SCH (08:00)
[2018-06-21] MEDS: Enoxaparin 40 mg Syringe SC SCH (09:58)
[2018-06-21] MEDS ORDERED: HYDROmorphone 0.5 mg/0.5 ml ISec IVP SCH (10:00)
[2018-06-21] MEDS: HYDROmorphone 1 mg/ml ISec IVP PRN ×2 (10:09→13:17)
[2018-06-21] MEDS ORDERED: Potassium Phosphate 30 MMOLE in Dextrose 5% In Water 250 ML IV ONE (10:30)
--- NOTE | 2018-06-21 10:52 | CP.PCM.PN ---
Subjective - Date & Time of Evaluation Date of Evaluation: 06/21/18 Time of Evaluation: 10:51 - Subjective Subjective: Surgery Pt seen and examined with Dr. Kaur. c/o abd pain. Denies fever, vomiting, flatus, BM. NGT in place 800cc bilious output /24hrs. AMbulates with help. Using IS. Voiding freely. Dressing removed. Objective - Vital Signs/Intake and Output Vital Signs (last 24 hours): Temp Pulse Resp BP Pulse Ox 99.3 F 106 H 18 143/79 93 L 06/21/18 07:58 06/21/18 07:58 06/21/18 07:58 06/21/18 07:58 06/21/18 07:58 Intake and Output: 06/21/18 06/21/18 06:59 18:59 Intake Total 1550 Output Total 1650 Balance -100 - Medications Medications: Current Medications Acetaminophen (Tylenol 650 Mg Supp) 650 mg [place] Q4 PRN PRN Reason: Pain, Mild (1-3) Enoxaparin Sodium (Lovenox) 40 mg SC DAILY [facility] PRN Reason: Protocol Last Admin: 06/21/18 09:58 Dose: 40 mg Hydromorphone HCl (Dilaudid) 1 mg IVP Q3 PRN PRN Reason: Pain, severe (8-10) Last Admin: 06/21/18 10:09 Dose: 1 mg Hydromorphone HCl (Dilaudid) 0.5 mg IVP Q3 PRN PRN Reason: Pain, moderate (4-7) Piperacillin Sod/Tazobactam (Sod 3.375 gm/ Sodium Chloride) 100 mls @ 100 mls/ hr IVPB Q6 [facility] PRN Reason: Protocol Last Admin: 06/21/18 10:01 Dose: 100 mls/hr Lactated Ringer's (Lactated Ringer's) 2,000 mls @ 999 mls/hr IV .Q2H1M [facility] Last Admin: 06/18/18 21:36 Dose: 999 mls/hr Vancomycin HCl 1 gm/ Sodium (Chloride) 250 mls @ 166.667 mls/hr IVPB Q12H [facility] PRN Reason: Protocol Last Admin: 06/21/18 03:46 Dose: 166.667 mls/hr Lactated Ringer's (Lactated Ringer's) 1,000 mls @ 125 mls/hr IV .Q8H [facility] Last Admin: 06/21/18 10:04 Dose: 125 mls/hr Potassium Phosphate 30 mmole/ (Dextrose) 260 mls @ 84 mls/hr IV .Q3H6M ONE Stop: 06/21/18 13:35 Ondansetron HCl (Zofran Inj) 4 mg IVP Q4 PRN PRN Reason: Nausea/Vomiting Pantoprazole Sodium (Protonix Inj) 40 mg IVP DAILY [facility] Last Admin: 06/21/18 09:58 Dose: 40 mg Zolpidem Tartrate (Ambien) 5 mg PO HS [facility] Last Admin: 06/20/18 22:00 Dose: Not Given - Labs Labs: 06/21/18 04:20 06/21/18 04:20 - Constitutional Appears: No Acute Distress - Head Exam Head Exam: ATRAUMATIC, NORMAL INSPECTION, NORMOCEPHALIC - Eye Exam Eye Exam: EOMI, Normal appearance, PERRL Pupil Exam: NORMAL ACCOMODATION, PERRL - ENT Exam ENT Exam: Mucous Membranes Moist, Normal Exam - Neck Exam Neck Exam: Full ROM, Normal Inspection - Respiratory Exam Respiratory Exam: NORMAL BREATHING PATTERN - Cardiovascular Exam Cardiovascular Exam: Tachycardia, +S1, +S2. absent: Murmur - GI/Abdominal Exam GI & Abdominal Exam: Distended, Soft, Tenderness, Hyperactive Bowel Sounds. absent: Firm, Guarding, Rigid, Diminished Bowel Sounds, Hernia, Hypoactive Bowel Sounds, Mass, Organomegaly, Pulsatile Mass, Rebound Additional comments: midline incision 40cm stapled. No signs of infection. TTP - Exam Exam: NORMAL INSPECTION - Extremities Exam Extremities Exam: Full ROM, Normal Capillary Refill, Normal Inspection. absent : Joint Swelling, Pedal Edema - Back Exam Back Exam: NORMAL INSPECTION - Neurological Exam Neurological Exam: Alert, Awake, CN II-XII Intact, Normal Gait, Oriented x3 - Psychiatric Exam Psychiatric exam: Normal Affect, Normal Mood - Skin Skin Exam: Dry, Intact, Normal Color, Warm Assessment and Plan - Assessment and Plan (Free Text) Assessment: POD 2 s/p Ex lap internal hernia reduction, SB resection -NPO -IVF -Labs -replete electrolyte PRN -AMbulate -IS -DVT/GI ppx -Pain /nausea control -NGT Pt seen and examined with Dr. Kaur. Case DW Dr. Kaur
[2018-06-21] MEDS ORDERED: Benzocaine/Menthol (Cepacol) Lozenge PO PRN (11:17)
--- NOTE | 2018-06-21 12:34 | CP.PCM.PN ---
Subjective - Date & Time of Evaluation Date of Evaluation: 06/21/18 Time of Evaluation: 10:30 - Subjective Subjective: Pt is afebrile still no BM nor flatus Hypoactive BS NGT in place Pain controlled Objective - Vital Signs/Intake and Output Vital Signs (last 24 hours): Temp Pulse Resp BP Pulse Ox 99.3 F 106 H 18 143/79 93 L 06/21/18 07:58 06/21/18 07:58 06/21/18 07:58 06/21/18 07:58 06/21/18 07:58 Intake and Output: 06/21/18 06/21/18 06:59 18:59 Intake Total 1550 Output Total 1650 Balance -100 - Medications Medications: Current Medications Acetaminophen (Tylenol 650 Mg Supp) 650 mg [place] Q4 PRN PRN Reason: Pain, Mild (1-3) Benzocaine/Menthol (Cepacol Sore Throat) 1 yohana PO Q2 PRN PRN Reason: Sore Throat Enoxaparin Sodium (Lovenox) 40 mg SC DAILY [facility] PRN Reason: Protocol Last Admin: 06/21/18 09:58 Dose: 40 mg Hydromorphone HCl (Dilaudid) 1 mg IVP Q3 PRN PRN Reason: Pain, severe (8-10) Last Admin: 06/21/18 10:09 Dose: 1 mg Hydromorphone HCl (Dilaudid) 0.5 mg IVP Q3 PRN PRN Reason: Pain, moderate (4-7) Piperacillin Sod/Tazobactam (Sod 3.375 gm/ Sodium Chloride) 100 mls @ 100 mls/ hr IVPB Q6 [facility] PRN Reason: Protocol Last Admin: 06/21/18 10:01 Dose: 100 mls/hr Lactated Ringer's (Lactated Ringer's) 2,000 mls @ 999 mls/hr IV .Q2H1M [facility] Last Admin: 06/18/18 21:36 Dose: 999 mls/hr Vancomycin HCl 1 gm/ Sodium (Chloride) 250 mls @ 166.667 mls/hr IVPB Q12H [facility] PRN Reason: Protocol Last Admin: 06/21/18 03:46 Dose: 166.667 mls/hr Lactated Ringer's (Lactated Ringer's) 1,000 mls @ 125 mls/hr IV .Q8H [facility] Last Admin: 06/21/18 10:04 Dose: 125 mls/hr Potassium Phosphate 30 mmole/ (Dextrose) 260 mls @ 84 mls/hr IV .Q3H6M ONE Stop: 06/21/18 13:35 Ondansetron HCl (Zofran Inj) 4 mg IVP Q4 PRN PRN Reason: Nausea/Vomiting Pantoprazole Sodium (Protonix Inj) 40 mg IVP DAILY [facility] Last Admin: 06/21/18 09:58 Dose: 40 mg Zolpidem Tartrate (Ambien) 5 mg PO HS [facility] Last Admin: 06/20/18 22:00 Dose: Not Given - Labs Labs: 06/21/18 04:20 06/21/18 04:20 - Constitutional Appears: In Acute Distress - Head Exam Head Exam: ATRAUMATIC, NORMAL INSPECTION, NORMOCEPHALIC - Eye Exam Eye Exam: EOMI, Normal appearance, PERRL Pupil Exam: NORMAL ACCOMMODATION - ENT Exam ENT Exam: Mucous Membranes Dry, Normal External Ear Exam - Neck Exam Neck Exam: Full ROM. absent: Meningismus - Respiratory Exam Respiratory Exam: NORMAL BREATHING PATTERN. absent: Respiratory Distress - Cardiovascular Exam Cardiovascular Exam: REGULAR RHYTHM, +S1, +S2 - GI/Abdominal Exam GI & Abdominal Exam: surgical wound with dressing , + Tenderness, Hypoactive Bowel Sounds NGT in place - Extremities Exam Extremities Exam: Full ROM, Normal Capillary Refill, Normal Inspection. absent : Calf Tenderness, Joint Swelling, Pedal Edema - Back Exam Back Exam: Full ROM, NORMAL INSPECTION. absent: CVA tenderness (L), CVA tenderness (R) - Neurological Exam Neurological Exam: Alert, Awake, Normal Gait Neuro motor strength exam: Left Upper Extremity: 5, Right Upper Extremity: 5, Left Lower Extremity: 5, Right Lower Extremity: 5 - Psychiatric Exam Psychiatric exam: Normal Affect, Normal Mood - Skin Skin Exam: Dry, Normal Color, Warm Assessment and Plan - Assessment and Plan (Free Text) Assessment: This is a 43 year old female with a past medical history of a hysterectomy last September, who went to [facility] three days prior to admission c/o severe abdominal pain and vomiting. The patient relates that there the surgeons found an ovary which was wrapping around her intestine and subsequently unwrapped it. She now presents to [facility] due to increasingly worse sharp, crampy abdominal pain centered in the middle of her abdomen and radiating to the left and right sides. A CT scan was performed in the ED which showed signs of an acute bowel obstruction. An NG tube was placed drained dark green bilious material. The patient's labwork reveal significant bandemia of 29 and neutrophil % of 81.9. The patient was started on IV Vancomycin and Zosyn along with aggressive rehydration with normal saline. Dr. Kaur was called on for general surgery and Dr. Cortez was called for Online Editor Pt had Explor Lap done by Dr Kaur - Adhesiolysis ,reduction on int hernia and bowel resection done. 1) Acute small bowel obstruction s/p Explor Lap - Adhesiolysis ,Reduction of Internal Hernia, Bowel resection with end to end anastomosis - Surgery: Dr. Kaur - cont NG tube to low intermittent suction - Continue Zosyn 3.375 q 6 hours and IV Vanco - Dilaudid IV prn for pain control , d/c DOMAIN ARCHITECT pump - Zofran PRN for N/V - cont IVF - NPO, may have ice chips - hypoactive BS , no flatus , no BM - Incentive spirometry - out of bed 2. Hypokalemia/Hypophosphatemia - replace with KCL runs and K Phos 2) DVT ppx Lovenox
[2018-06-21] MEDS ORDERED: Chlorhexidine Gluconate 1 APPL/PKT TP ONE (13:26)
[2018-06-22] MEDS: HYDROmorphone 0.5 mg/0.5 ml ISec IVP PRN ×8 (01:24→23:06)
[2018-06-22] MEDS: Piperacillin/Tazobact 3.375 GM in Sodium Chloride 0.9% 100 ML IVPB SCH ×4 (04:54→21:59)
[2018-06-22 06:21] LABS: BASO % 0.2 % (0.0-2.0); EOS # 0.3 K/uL (0.0-0.7); HEMOGLOBIN 9.1 g/dL (12.0-16.0); LYMPH # 1.5 K/uL (1.0-4.3); LYMPH % 14.2 % (20.0-40.0); MEAN CELL VOLUME 99.2 fl (81.0-99.0); MEAN CORPUSCULAR HEMOGLOBIN 34.7 pg (27.0-31.0); MEAN PLATELET VOLUME 7.1 fl (7.2-11.7); MONO # 1.4 K/uL (0.0-0.8); MONO % 13.7 % (0.0-10.0); NEUT # 7.2 K/uL (1.8-7.0); NEUT % 68.9 % (50.0-75.0); NRBC % 0.1 % (0.0-0.0); RBC 2.62 Mil/uL (3.80-5.20); RED CELL DISTRIBUTION WIDTH 13.1 % (11.5-14.5); WHITE BLOOD COUNT 10.5 K/uL (4.8-10.8)
[2018-06-22 06:50] LABS: BLOOD UREA NITROGEN 5 mg/dl (7-17); CALCIUM 7.9 mg/dL (8.4-10.2); GFR NON-AFRICAN AMERICAN > 60
--- NOTE | 2018-06-22 07:48 | CP.PCM.PN ---
<KeithMary - Last Filed: 06/22/18 08:13> Subjective - Date & Time of Evaluation Date of Evaluation: 06/22/18 Time of Evaluation: 07:46 - Subjective Subjective: General Surgery Dr. Kaur PT S&E @bedside. NGT fell out yesterday and replaced. otherwise, NAEO. Pt denies F/C, N/V. NPO w/ NGT on LCS. NGT 600cc bilious [id number] Objective - Vital Signs/Intake and Output Vital Signs (last 24 hours): Temp Pulse Resp BP Pulse Ox 98.4 F 83 18 149/83 92 L 06/22/18 05:06 06/22/18 05:06 06/22/18 05:06 06/22/18 05:06 06/22/18 05:06 - Medications Medications: Current Medications Acetaminophen (Tylenol 650 Mg Supp) 650 mg [place] Q4 PRN PRN Reason: Pain, Mild (1-3) Benzocaine/Menthol (Cepacol Sore Throat) 1 yohana PO Q2 PRN PRN Reason: Sore Throat Enoxaparin Sodium (Lovenox) 40 mg SC DAILY [facility] PRN Reason: Protocol Last Admin: 06/21/18 09:58 Dose: 40 mg Hydromorphone HCl (Dilaudid) 0.5 mg IVP Q3 PRN PRN Reason: Pain, moderate (4-7) Hydromorphone HCl (Dilaudid) 1 mg IVP Q3 PRN PRN Reason: Pain, severe (8-10) Last Admin: 06/22/18 05:02 Dose: 1 mg Piperacillin Sod/Tazobactam (Sod 3.375 gm/ Sodium Chloride) 100 mls @ 100 mls/ hr IVPB Q6 [facility] PRN Reason: Protocol Last Admin: 06/22/18 04:54 Dose: 100 mls/hr Vancomycin HCl 1 gm/ Sodium (Chloride) 250 mls @ 166.667 mls/hr IVPB Q12H [facility] PRN Reason: Protocol Last Admin: 06/22/18 04:53 Dose: 166.667 mls/hr Potassium Chloride (Potassium Chloride 20 Meq/100 Ml) 100 mls @ 50 mls/hr IV Q2 [facility] Stop: 06/22/18 13:59 Magnesium Sulfate 2 gm/ Sodium (Chloride) 104 mls @ 104 mls/hr IVPB ONCE ONE PRN Reason: 2 GM/HR Stop: 06/22/18 08:26 Potassium Chloride/Dextrose/Sod Cl (Potassium Chl 20 Meq In D5-1/2ns) 1,000 mls @ 100 mls/hr IV .Q10H [facility] Stop: 06/23/18 07:29 Ondansetron HCl (Zofran Inj) 4 mg IVP Q4 PRN PRN Reason: Nausea/Vomiting Pantoprazole Sodium (Protonix Inj) 40 mg IVP DAILY [facility] Last Admin: 06/21/18 09:58 Dose: 40 mg Zolpidem Tartrate (Ambien) 5 mg PO HS [facility] Last Admin: 06/21/18 21:53 Dose: 5 mg - Labs Labs: 06/22/18 05:30 06/22/18 05:30 - Constitutional Appears: Non-toxic, No Acute Distress - Head Exam Head Exam: NORMAL INSPECTION - Eye Exam Eye Exam: Normal appearance - ENT Exam ENT Exam: Mucous Membranes Moist - Respiratory Exam Respiratory Exam: NORMAL BREATHING PATTERN. absent: Accessory Muscle Use, Respiratory Distress - Cardiovascular Exam Cardiovascular Exam: REGULAR RHYTHM. absent: Bradycardia, Tachycardia - GI/Abdominal Exam GI & Abdominal Exam: Distended (mild), Soft, Tenderness (vitaliy-incisional TTP). absent: Guarding, Rigid, Rebound Additional comments: wisam c/d/i - Extremities Exam Extremities Exam: Normal Inspection - Neurological Exam Neurological Exam: Alert, Awake, Oriented x3 - Psychiatric Exam Psychiatric exam: Normal Affect, Normal Mood - Skin Skin Exam: Dry, Intact, Normal Color, Warm Assessment and Plan - Assessment and Plan (Free Text) Assessment: 43 y/o F POD#3 s/p ex-lap for SBO 2/2 internal hernia - maintain NPO - D5 1/2NS +20K @100 - pain management - NGT LCS --> monitor output - monitor vitals - monitor bowel fxn - encourage OOB to chair/Amb/IS use Pt discussed w/ Dr. Natasha Parker DO PGY3 <Alexis Kaur - Last Filed: 06/22/18 10:49> Subjective - Date & Time of Evaluation Time of Evaluation: 10:00 - Subjective Subjective: Patient was seen and examined at the bedside. Agree with resident's note above. Objective - Vital Signs/Intake and Output Vital Signs (last 24 hours): Temp Pulse Resp BP Pulse Ox 98.5 F 87 20 139/84 97 06/22/18 08:45 06/22/18 08:45 06/22/18 08:45 06/22/18 08:45 06/22/18 08:45 - Medications Medications: Current Medications Acetaminophen (Tylenol 650 Mg Supp) 650 mg [place] Q4 PRN PRN Reason: Pain, Mild (1-3) Benzocaine/Menthol (Cepacol Sore Throat) 1 yohana PO Q2 PRN PRN Reason: Sore Throat Enoxaparin Sodium (Lovenox) 40 mg SC DAILY [facility] PRN Reason: Protocol Last Admin: 06/22/18 09:34 Dose: 40 mg Hydromorphone HCl (Dilaudid) 0.5 mg IVP Q3 PRN PRN Reason: Pain, moderate (4-7) Hydromorphone HCl (Dilaudid) 1 mg IVP Q3 PRN PRN Reason: Pain, severe (8-10) Last Admin: 06/22/18 08:18 Dose: 1 mg Piperacillin Sod/Tazobactam (Sod 3.375 gm/ Sodium Chloride) 100 mls @ 100 mls/ hr IVPB Q6 [facility] PRN Reason: Protocol Last Admin: 06/22/18 09:35 Dose: 100 mls/hr Vancomycin HCl 1 gm/ Sodium (Chloride) 250 mls @ 166.667 mls/hr IVPB Q12H [facility] PRN Reason: Protocol Last Admin: 06/22/18 04:53 Dose: 166.667 mls/hr Potassium Chloride (Potassium Chloride 20 Meq/100 Ml) 100 mls @ 50 mls/hr IV Q2 [facility] Stop: 06/22/18 13:59 Potassium Chloride/Dextrose/Sod Cl (Potassium Chl 20 Meq In D5-1/2ns) 1,000 mls @ 100 mls/hr IV .Q10H [facility] Stop: 06/23/18 07:29 Last Admin: 06/22/18 09:44 Dose: 100 mls/hr Ondansetron HCl (Zofran Inj) 4 mg IVP Q4 PRN PRN Reason: Nausea/Vomiting Pantoprazole Sodium (Protonix Inj) 40 mg IVP DAILY [facility] Last Admin: 06/22/18 09:35 Dose: 40 mg Zolpidem Tartrate (Ambien) 5 mg PO HS [facility] Last Admin: 06/21/18 21:53 Dose: 5 mg - Labs Labs: 06/22/18 05:30 06/22/18 05:30 Assessment and Plan - Assessment and Plan (Free Text) Plan: - replace electrolytes - pain control - Insentive spirometry - DVT ppx - Continue antibiotics - Repeat labs in am - Will follow
[2018-06-22] MEDS: Enoxaparin 40 mg Syringe SC SCH (09:34)
[2018-06-22] MEDS: Potassium Ch 20mEq in D5-1/2NS 1,000 ML IV SCH ×2 (09:44→21:33)
[2018-06-22] MEDS: Magnesium Sulfate 1 GM in Dextrose 5% In Water 100 ML IVPB SCH ×2 (09:46→15:00)
[2018-06-22] MEDS: Potassium Chloride 20 mEq 100 ML IV SCH ×3 (10:00→14:00)
--- NOTE | 2018-06-22 16:45 | CP.PCM.PN ---
Subjective - Date & Time of Evaluation Date of Evaluation: 06/22/18 Time of Evaluation: 11:00 - Subjective Subjective: Patient seen and examined. Patient still complaining of pain but it is somewhat controlled with the dilaudid. NG tube fell out and was replaced. 600 cc of drainage from NG tube overnight. Objective - Vital Signs/Intake and Output Vital Signs (last 24 hours): Temp Pulse Resp BP Pulse Ox 98 F 86 20 132/89 95 06/22/18 15:53 06/22/18 15:53 06/22/18 15:53 06/22/18 15:53 06/22/18 15:53 - Medications Medications: Current Medications Acetaminophen (Tylenol 650 Mg Supp) 650 mg [place] Q4 PRN PRN Reason: Pain, Mild (1-3) Benzocaine/Menthol (Cepacol Sore Throat) 1 yohana PO Q2 PRN PRN Reason: Sore Throat Enoxaparin Sodium (Lovenox) 40 mg SC DAILY [facility] PRN Reason: Protocol Last Admin: 06/22/18 09:34 Dose: 40 mg Hydromorphone HCl (Dilaudid) 0.5 mg IVP Q3 PRN PRN Reason: Pain, moderate (4-7) Hydromorphone HCl (Dilaudid) 1 mg IVP Q3 PRN PRN Reason: Pain, severe (8-10) Last Admin: 06/22/18 14:05 Dose: 1 mg Piperacillin Sod/Tazobactam (Sod 3.375 gm/ Sodium Chloride) 100 mls @ 100 mls/ hr IVPB Q6 [facility] PRN Reason: Protocol Last Admin: 06/22/18 09:35 Dose: 100 mls/hr Vancomycin HCl 1 gm/ Sodium (Chloride) 250 mls @ 166.667 mls/hr IVPB Q12H [facility] PRN Reason: Protocol Last Admin: 06/22/18 04:53 Dose: 166.667 mls/hr Potassium Chloride/Dextrose/Sod Cl (Potassium Chl 20 Meq In D5-1/2ns) 1,000 mls @ 100 mls/hr IV .Q10H [facility] Stop: 06/23/18 07:29 Last Admin: 06/22/18 09:44 Dose: 100 mls/hr Ondansetron HCl (Zofran Inj) 4 mg IVP Q4 PRN PRN Reason: Nausea/Vomiting Pantoprazole Sodium (Protonix Inj) 40 mg IVP DAILY [facility] Last Admin: 06/22/18 09:35 Dose: 40 mg Zolpidem Tartrate (Ambien) 5 mg PO HS [facility] Last Admin: 06/21/18 21:53 Dose: 5 mg - Labs Labs: 06/22/18 05:30 06/22/18 05:30 - Additional Findings Additional findings: Physical exam: Constitutional- cooperative, awake, alert, appears uncomfortable Head- NCAT, PERRL Eye- PERRL, EOMI ENT- normal exam, MMM. + NG tube Neck- normal inspection, supple, no JVD Respiratory- CTAB, no wheezes rales rhonchi Cardiovascular- RRR, +S1, +S2 no MRG GI/Abdominal- + surgical wound with dressing intact, still with diffuse tenderness, hypoactive bowel sounds, soft, no mass, no hsm. Skin- warm, dry Extremities Exam- normal capillary refill, normal inspection Neurological Exam- alert, awake, oriented Psych- normal mood, normal affect Assessment and Plan - Assessment and Plan (Free Text) Plan: This is a 43 year old female with a past medical history of a hysterectomy last September, who went to [facility] three days prior to admission c/o severe abdominal pain and vomiting. The patient relates that there the surgeons found an ovary which was wrapping around her intestine and subsequently unwrapped it. She now presents to [facility] due to increasingly worse sharp, crampy abdominal pain centered in the middle of her abdomen and radiating to the left and right sides. A CT scan was performed in the ED which showed signs of an acute bowel obstruction. An NG tube was placed drained dark green bilious material. The patient's labwork reveal significant bandemia of 29 and neutrophil % of 81.9. The patient was started on IV Vancomycin and Zosyn along with aggressive rehydration with normal saline. Dr. Kaur was called on for general surgery and Dr. Cortez was called for Water Treatment Plant Mechanic Pt had Explor Lap done by Dr Kaur - Adhesiolysis ,reduction on int hernia and bowel resection done. 1) Acute small bowel obstruction s/p Explor Lap - Adhesiolysis ,Reduction of Internal Hernia, Bowel resection with end to end anastomosis - Surgery: Dr. Kaur - Slowly improving - cont NG tube to low intermittent suction - Continue Zosyn 3.375 q 6 hours and IV Vanco - Dilaudid IV prn for pain control , d/c CHIEF SERVICE DISPATCHER pump - Zofran PRN for N/V - cont IVF - NPO, may have ice chips - hypoactive BS , no flatus , no BM - Incentive spirometry - out of bed 2. Hypokalemia/Hypophosphatemia - replace with KCL runs and K Phos PRN 2) DVT ppx Lovenox
[2018-06-23] MEDS: HYDROmorphone 0.5 mg/0.5 ml ISec IVP PRN ×6 (03:15→22:14)
[2018-06-23] MEDS: Potassium Ch 20mEq in D5-1/2NS 1,000 ML IV SCH ×2 (04:00→16:45)
[2018-06-23] MEDS: Piperacillin/Tazobact 3.375 GM in Sodium Chloride 0.9% 100 ML IVPB SCH ×3 (04:33→16:00)
[2018-06-23 05:13] LABS: HEMOGLOBIN 9.2 g/dL (12.0-16.0); MEAN CELL VOLUME 99.9 fl (81.0-99.0); MEAN CORPUSCULAR HEMOGLOBIN 33.8 pg (27.0-31.0); MEAN CORPUSCULAR HGB CONC 33.9 g/dL (33.0-37.0); RBC 2.73 Mil/uL (3.80-5.20); RED CELL DISTRIBUTION WIDTH 13.3 % (11.5-14.5); WHITE BLOOD COUNT 8.9 K/uL (4.8-10.8)
[2018-06-23 05:59] LABS: BLOOD UREA NITROGEN 4 mg/dl (7-17); CALCIUM 8.2 mg/dL (8.4-10.2); GFR NON-AFRICAN AMERICAN > 60
--- NOTE | 2018-06-23 08:09 | CP.PCM.PN ---
Subjective - Date & Time of Evaluation Date of Evaluation: 06/23/18 Time of Evaluation: 08:04 - Subjective Subjective: General Surgery - Dr. Kaur Pt S&E. PATRICK. Pt states her incisional pain continues to improve and is controlled with current meds. She has been OOB to chair, awaiting PT to assist with ambulating. NGT in place with 400cc bilious drainage. She denies any flatus or BM yet. No Fevers/Chills/Nausea/Vomiting. Objective - Vital Signs/Intake and Output Vital Signs (last 24 hours): Temp Pulse Resp BP Pulse Ox 98.1 F 75 18 133/86 93 L 06/23/18 05:12 06/23/18 05:12 06/23/18 05:12 06/23/18 05:12 06/23/18 05:12 Intake and Output: 06/23/18 06/23/18 06:59 18:59 Intake Total 3750 Output Total 3050 Balance 700 - Medications Medications: Current Medications Acetaminophen (Tylenol 650 Mg Supp) 650 mg [place] Q4 PRN PRN Reason: Pain, Mild (1-3) Benzocaine/Menthol (Cepacol Sore Throat) 1 yohana PO Q2 PRN PRN Reason: Sore Throat Enoxaparin Sodium (Lovenox) 40 mg SC DAILY [facility] PRN Reason: Protocol Last Admin: 06/22/18 09:34 Dose: 40 mg Hydromorphone HCl (Dilaudid) 0.5 mg IVP Q3 PRN PRN Reason: Pain, moderate (4-7) Last Admin: 06/23/18 06:26 Dose: 0.5 mg Hydromorphone HCl (Dilaudid) 1 mg IVP Q3 PRN PRN Reason: Pain, severe (8-10) Last Admin: 06/23/18 03:15 Dose: 1 mg Piperacillin Sod/Tazobactam (Sod 3.375 gm/ Sodium Chloride) 100 mls @ 100 mls/ hr IVPB Q6 [facility] PRN Reason: Protocol Last Admin: 06/23/18 04:33 Dose: 100 mls/hr Vancomycin HCl 1 gm/ Sodium (Chloride) 250 mls @ 166.667 mls/hr IVPB Q12H [facility] PRN Reason: Protocol Last Admin: 06/23/18 03:18 Dose: 166.667 mls/hr Potassium Chloride (Potassium Chloride 20 Meq/100 Ml) 100 mls @ 50 mls/hr IVPB Q2 [facility] Stop: 06/23/18 11:59 Potassium Chloride/Dextrose/Sod Cl (Potassium Chl 20 Meq In D5-1/2ns) 1,000 mls @ 100 mls/hr IV .Q10H [facility] Stop: 06/24/18 06:27 Ondansetron HCl (Zofran Inj) 4 mg IVP Q4 PRN PRN Reason: Nausea/Vomiting Pantoprazole Sodium (Protonix Inj) 40 mg IVP DAILY [facility] Last Admin: 06/22/18 09:35 Dose: 40 mg Zolpidem Tartrate (Ambien) 5 mg PO HS [facility] Last Admin: 06/22/18 21:33 Dose: 5 mg - Labs Labs: 06/23/18 04:20 06/23/18 04:20 - Constitutional Appears: No Acute Distress - Head Exam Head Exam: ATRAUMATIC, NORMAL INSPECTION, NORMOCEPHALIC - Respiratory Exam Respiratory Exam: NORMAL BREATHING PATTERN. absent: Respiratory Distress - Cardiovascular Exam Cardiovascular Exam: REGULAR RHYTHM - GI/Abdominal Exam GI & Abdominal Exam: Soft. absent: Distended, Guarding, Tenderness, Rebound - Neurological Exam Neurological Exam: Alert, Oriented x3 - Psychiatric Exam Psychiatric exam: Normal Affect, Normal Mood - Skin Skin Exam: Dry, Intact Assessment and Plan - Assessment and Plan (Free Text) Assessment: 43 y/o F POD#4 s/p ex-lap with Small bowel resection - Continue NGT to low cont. suction - Continue IVF, Pain control prn - Monitor for bowel function - Encourage OOB to chair during the day and Ambulation, Physical therapy Pt discussed w/ Dr. Natasha Soler PGY4
[2018-06-23] MEDS: Potassium Chloride 20 mEq 100 ML IVPB SCH ×2 (09:00→12:00)
--- NOTE | 2018-06-23 09:41 | CP.PCM.PN ---
Subjective - Date & Time of Evaluation Date of Evaluation: 06/23/18 Time of Evaluation: 09:32 - Subjective Subjective: General Surgery Pt seen and examined this AM. She reports having some abdominal cramping, (-) N /V. (-) flatus, (-) BM. Pt remains NPO with NGT on suction. Vitals and Labs noted, pt's K improving however remains low 3.4. (orders entered by resident for repletion) NGT output: 750 ml of bilious output per I/Os PE Gen: Pt laying in bed, appears slightly anxious Skin: warm and dry Cardio: S1S2 RRR Lungs: CTA bilaterally Abd: (+) mild distention, (+) incisional tenderness , Surgical incisions: 1) midline: stapled, C/D/I 2) transverse suprapubic incision with steri strips C/D /I Extr: (-) calf tenderness bilaterally A/P POD 4 s/p exploratory lap, reduction of internal hernia, small bowel resection, lysis of adhesions. Encourage OOB, pt may shower. Continue NGT for suction for now as she had 750 ml in the past 24 hours, however pt has been eating some ice chips Continue IVF and Pain control prn. 1015 On re-eval, pt reports passing gas 4 times just now and feels less cramping. May likely start clear liquids tomorrow pending NGT output. From 7am to now (~ 3hrs) she has had 150ml output. Objective - Vital Signs/Intake and Output Vital Signs (last 24 hours): Temp Pulse Resp BP Pulse Ox 98 F 86 18 131/84 96 06/23/18 08:06 06/23/18 08:06 06/23/18 08:06 06/23/18 08:06 06/23/18 08:06 Intake and Output: 06/23/18 06/23/18 06:59 18:59 Intake Total 3750 Output Total 3050 Balance 700 - Medications Medications: Current Medications Acetaminophen (Tylenol 650 Mg Supp) 650 mg [place] Q4 PRN PRN Reason: Pain, Mild (1-3) Benzocaine/Menthol (Cepacol Sore Throat) 1 yohana PO Q2 PRN PRN Reason: Sore Throat Enoxaparin Sodium (Lovenox) 40 mg SC DAILY [facility] PRN Reason: Protocol Last Admin: 06/22/18 09:34 Dose: 40 mg Hydromorphone HCl (Dilaudid) 0.5 mg IVP Q3 PRN PRN Reason: Pain, moderate (4-7) Last Admin: 06/23/18 06:26 Dose: 0.5 mg Hydromorphone HCl (Dilaudid) 1 mg IVP Q3 PRN PRN Reason: Pain, severe (8-10) Last Admin: 06/23/18 03:15 Dose: 1 mg Piperacillin Sod/Tazobactam (Sod 3.375 gm/ Sodium Chloride) 100 mls @ 100 mls/ hr IVPB Q6 [facility] PRN Reason: Protocol Last Admin: 06/23/18 04:33 Dose: 100 mls/hr Vancomycin HCl 1 gm/ Sodium (Chloride) 250 mls @ 166.667 mls/hr IVPB Q12H [facility] PRN Reason: Protocol Last Admin: 06/23/18 03:18 Dose: 166.667 mls/hr Potassium Chloride (Potassium Chloride 20 Meq/100 Ml) 100 mls @ 50 mls/hr IVPB Q2 [facility] Stop: 06/23/18 11:59 Potassium Chloride/Dextrose/Sod Cl (Potassium Chl 20 Meq In D5-1/2ns) 1,000 mls @ 100 mls/hr IV .Q10H [facility] Stop: 06/24/18 06:27 Ondansetron HCl (Zofran Inj) 4 mg IVP Q4 PRN PRN Reason: Nausea/Vomiting Pantoprazole Sodium (Protonix Inj) 40 mg IVP DAILY [facility] Last Admin: 06/22/18 09:35 Dose: 40 mg Zolpidem Tartrate (Ambien) 5 mg PO HS [facility] Last Admin: 06/22/18 21:33 Dose: 5 mg - Labs Labs: 06/23/18 04:20 06/23/18 04:20
[2018-06-23] MEDS: Enoxaparin 40 mg Syringe SC SCH (10:10)
[2018-06-23] MEDS ORDERED: oxyCODONE 10 mg Immediate Release Tab PO PRN (10:44)
[2018-06-23] MEDS: oxyCODONE 5 mg Immediate Release Tab PO PRN ×2 (12:06→20:46)
--- NOTE | 2018-06-23 14:41 | CP.PCM.PN ---
Subjective - Date & Time of Evaluation Date of Evaluation: 06/23/18 Time of Evaluation: 14:00 - Subjective Subjective: Patient seen and examined. She states she is doing much better today. Passing flatus and improved bowel sounds. NG tube removed by surgery and clear liquid diet initialized. No new complaints. Pain is controlled. Objective - Vital Signs/Intake and Output Vital Signs (last 24 hours): Temp Pulse Resp BP Pulse Ox 97.7 F 86 18 135/88 97 06/23/18 12:06 06/23/18 12:06 06/23/18 12:06 06/23/18 12:06 06/23/18 12:06 Intake and Output: 06/23/18 06/23/18 06:59 18:59 Intake Total 3750 Output Total 3050 Balance 700 - Medications Medications: Current Medications Acetaminophen (Tylenol 325mg Tab) 650 mg PO Q4 PRN PRN Reason: Pain, Mild (1-3) Benzocaine/Menthol (Cepacol Sore Throat) 1 yohana PO Q2 PRN PRN Reason: Sore Throat Enoxaparin Sodium (Lovenox) 40 mg SC DAILY [facility] PRN Reason: Protocol Last Admin: 06/23/18 10:10 Dose: 40 mg Hydromorphone HCl (Dilaudid) 0.5 mg IVP Q3 PRN PRN Reason: breakthrough pain Last Admin: 06/23/18 13:11 Dose: 0.5 mg Piperacillin Sod/Tazobactam (Sod 3.375 gm/ Sodium Chloride) 100 mls @ 100 mls/ hr IVPB Q6 [facility] PRN Reason: Protocol Last Admin: 06/23/18 09:00 Dose: 100 mls/hr Vancomycin HCl 1 gm/ Sodium (Chloride) 250 mls @ 166.667 mls/hr IVPB Q12H [facility] PRN Reason: Protocol Last Admin: 06/23/18 03:18 Dose: 166.667 mls/hr Potassium Chloride/Dextrose/Sod Cl (Potassium Chl 20 Meq In D5-1/2ns) 1,000 mls @ 100 mls/hr IV .Q10H [facility] Stop: 06/24/18 06:27 Ondansetron HCl (Zofran Inj) 4 mg IVP Q4 PRN PRN Reason: Nausea/Vomiting Oxycodone HCl (Oxycodone Immediate Release Tab) 5 mg PO Q4 PRN PRN Reason: Pain, moderate (4-7) Last Admin: 06/23/18 12:06 Dose: 5 mg Oxycodone HCl (Oxycodone Immediate Release Tab) 10 mg PO Q6 PRN PRN Reason: Pain, severe (8-10) Pantoprazole Sodium (Protonix Inj) 40 mg IVP DAILY [facility] Last Admin: 06/23/18 09:00 Dose: 40 mg Zolpidem Tartrate (Ambien) 5 mg PO HS [facility] Last Admin: 06/22/18 21:33 Dose: 5 mg - Labs Labs: 06/23/18 04:20 06/23/18 04:20 - Additional Findings Additional findings: Physical exam: Constitutional- cooperative, awake, alert, appears uncomfortable Head- NCAT, PERRL Eye- PERRL, EOMI ENT- normal exam, MMM. + NG tube Neck- normal inspection, supple, no JVD Respiratory- CTAB, no wheezes rales rhonchi Cardiovascular- RRR, +S1, +S2 no MRG GI/Abdominal- + surgical wound with dressing intact, less tender today, normoactive bowel sounds, soft, no mass, no hsm. Skin- warm, dry Extremities Exam- normal capillary refill, normal inspection Neurological Exam- alert, awake, oriented Psych- normal mood, normal affect Assessment and Plan - Assessment and Plan (Free Text) Plan: This is a 43 year old female with a past medical history of a hysterectomy last September, who went to [facility] three days prior to admission c/o severe abdominal pain and vomiting. The patient relates that there the surgeons found an ovary which was wrapping around her intestine and subsequently unwrapped it. She now presents to [facility] due to increasingly worse sharp, crampy abdominal pain centered in the middle of her abdomen and radiating to the left and right sides. A CT scan was performed in the ED which showed signs of an acute bowel obstruction. An NG tube was placed drained dark green bilious material. The patient's labwork reveal significant bandemia of 29 and neutrophil % of 81.9. The patient was started on IV Vancomycin and Zosyn along with aggressive rehydration with normal saline. Dr. Kaur was called on for general surgery and Dr. Cortez was called for Logistics Management Specialist Pt had Explor Lap done by Dr Kaur - Adhesiolysis ,reduction on int hernia and bowel resection done. 1) Acute small bowel obstruction s/p Explor Lap - Adhesiolysis ,Reduction of Internal Hernia, Bowel resection with end to end anastomosis, improved today - Surgery: Dr. Kaur - NG tube d/c 06/23 - Continue Zosyn 3.375 q 6 hours and IV Vanco - Dilaudid IV prn for pain control , d/c WOOL SORTER pump - Zofran PRN for N/V - cont IVF - Clear liquid diet - Passing flatus, no BM as of now - Incentive spirometry - out of bed 2. Hypokalemia/Hypophosphatemia - replace with KCL runs and K Phos PRN 2) DVT ppx Lovenox
[2018-06-24] MEDS: HYDROmorphone 0.5 mg/0.5 ml ISec IVP PRN ×7 (01:42→21:30)
--- NOTE | 2018-06-24 07:34 | CP.PCM.PN ---
Subjective - Date & Time of Evaluation Date of Evaluation: 06/24/18 Time of Evaluation: 07:30 - Subjective Subjective: General Surgery Dr. Kaur Pt S&E @bedside. Pt passed flatus yesterday; NGT removed and pt started on CLD. NAEO. per pt and nursing, pt OOB/Amb hallways yesterday. Pt reports intermittent cramping, gas pains but otherwise abd pain much improved. pt denies N/V, F/C. tolerating CLD (+)Flatus (-)BM. Objective - Vital Signs/Intake and Output Vital Signs (last 24 hours): Temp Pulse Resp BP Pulse Ox 98.2 F 82 18 135/90 100 06/24/18 04:55 06/24/18 04:55 06/24/18 04:55 06/24/18 04:55 06/24/18 04:55 - Medications Medications: Current Medications Acetaminophen (Tylenol 325mg Tab) 650 mg PO Q4 PRN PRN Reason: Pain, Mild (1-3) Benzocaine/Menthol (Cepacol Sore Throat) 1 yohana PO Q2 PRN PRN Reason: Sore Throat Enoxaparin Sodium (Lovenox) 40 mg SC DAILY [facility] PRN Reason: Protocol Last Admin: 06/23/18 10:10 Dose: 40 mg Hydromorphone HCl (Dilaudid) 0.5 mg IVP Q3 PRN PRN Reason: breakthrough pain Last Admin: 06/24/18 06:02 Dose: 0.5 mg Ondansetron HCl (Zofran Inj) 4 mg IVP Q4 PRN PRN Reason: Nausea/Vomiting Oxycodone HCl (Oxycodone Immediate Release Tab) 5 mg PO Q4 PRN PRN Reason: Pain, moderate (4-7) Last Admin: 06/23/18 20:46 Dose: 5 mg Oxycodone HCl (Oxycodone Immediate Release Tab) 10 mg PO Q6 PRN PRN Reason: Pain, severe (8-10) Last Admin: 06/23/18 15:13 Dose: 10 mg Pantoprazole Sodium (Protonix Inj) 40 mg IVP DAILY [facility] Last Admin: 06/23/18 09:00 Dose: 40 mg Zolpidem Tartrate (Ambien) 5 mg PO HS [facility] Last Admin: 06/23/18 22:14 Dose: 5 mg - Labs Labs: 06/23/18 04:20 06/23/18 04:20 - Constitutional Appears: Non-toxic, No Acute Distress - Head Exam Head Exam: NORMAL INSPECTION - Eye Exam Eye Exam: Normal appearance - ENT Exam ENT Exam: Mucous Membranes Moist - Respiratory Exam Respiratory Exam: NORMAL BREATHING PATTERN. absent: Accessory Muscle Use, Respiratory Distress - Cardiovascular Exam Cardiovascular Exam: REGULAR RHYTHM. absent: Bradycardia, Tachycardia - GI/Abdominal Exam GI & Abdominal Exam: Soft, Tenderness (vitaliy-incisional TTP). absent: Distended , Firm, Guarding, Rigid, Rebound Additional comments: incision c/d/i wisam intact, skin well approximated - Extremities Exam Extremities Exam: Normal Inspection - Neurological Exam Neurological Exam: Alert, Awake, Oriented x3 - Psychiatric Exam Psychiatric exam: Normal Affect, Normal Mood - Skin Skin Exam: Dry, Intact, Normal Color, Warm Assessment and Plan - Assessment and Plan (Free Text) Assessment: 43 y/o F POD#5 s/p ex-lap w/ small bowel resection 2/2 SBO 2/2 internal hernia and adhesion - cont pain management - monitor bowel fxn - electrolyte replacement PRN - encourage OOB to chair/Amb/IS use - DVT PPx Will discuss w/ Dr. Natasha Parker DO PGY3
[2018-06-24 08:07] LABS: HEMOGLOBIN 9.8 g/dL (12.0-16.0); MEAN CELL VOLUME 99.4 fl (81.0-99.0); MEAN CORPUSCULAR HEMOGLOBIN 34.2 pg (27.0-31.0); MEAN CORPUSCULAR HGB CONC 34.3 g/dL (33.0-37.0); RBC 2.85 Mil/uL (3.80-5.20); RED CELL DISTRIBUTION WIDTH 13.7 % (11.5-14.5); WHITE BLOOD COUNT 8.6 K/uL (4.8-10.8)
[2018-06-24 08:17] LABS: BLOOD UREA NITROGEN 5 mg/dl (7-17); CALCIUM 8.4 mg/dL (8.4-10.2); GFR NON-AFRICAN AMERICAN > 60
[2018-06-24] MEDS: Enoxaparin 40 mg Syringe SC SCH (09:08)
[2018-06-24] MEDS: Potassium Ch 20mEq in D5-1/2NS 1,000 ML IV SCH (09:09)
--- NOTE | 2018-06-24 09:57 | CP.PCM.PN ---
Subjective - Date & Time of Evaluation Date of Evaluation: 06/24/18 Time of Evaluation: 09:30 - Subjective Subjective: Pt is afebrile Had flatus yesterday, no BM, normoactive BS started on Clear liquid diet - tolerating diet NGT out abd pain very much better no N/V no cough no SOB no CP Objective - Vital Signs/Intake and Output Vital Signs (last 24 hours): Temp Pulse Resp BP Pulse Ox 98.1 F 80 18 135/87 100 06/24/18 08:13 06/24/18 08:13 06/24/18 08:13 06/24/18 08:13 06/24/18 08:13 - Medications Medications: Current Medications Acetaminophen (Tylenol 325mg Tab) 650 mg PO Q4 PRN PRN Reason: Pain, Mild (1-3) Benzocaine/Menthol (Cepacol Sore Throat) 1 yohana PO Q2 PRN PRN Reason: Sore Throat Enoxaparin Sodium (Lovenox) 40 mg SC DAILY [facility] PRN Reason: Protocol Last Admin: 06/24/18 09:08 Dose: 40 mg Hydromorphone HCl (Dilaudid) 0.5 mg IVP Q3 PRN PRN Reason: breakthrough pain Last Admin: 06/24/18 09:14 Dose: 0.5 mg Ondansetron HCl (Zofran Inj) 4 mg IVP Q4 PRN PRN Reason: Nausea/Vomiting Oxycodone HCl (Oxycodone Immediate Release Tab) 5 mg PO Q4 PRN PRN Reason: Pain, moderate (4-7) Last Admin: 06/23/18 20:46 Dose: 5 mg Oxycodone HCl (Oxycodone Immediate Release Tab) 10 mg PO Q6 PRN PRN Reason: Pain, severe (8-10) Last Admin: 06/23/18 15:13 Dose: 10 mg Pantoprazole Sodium (Protonix Inj) 40 mg IVP DAILY [facility] Last Admin: 06/24/18 09:08 Dose: 40 mg Zolpidem Tartrate (Ambien) 5 mg PO HS [facility] Last Admin: 06/23/18 22:14 Dose: 5 mg - Labs Labs: 06/24/18 07:40 06/24/18 07:40 - Constitutional Appears: In Acute Distress - Head Exam Head Exam: ATRAUMATIC, NORMAL INSPECTION, NORMOCEPHALIC - Eye Exam Eye Exam: EOMI, Normal appearance, PERRL Pupil Exam: NORMAL ACCOMMODATION - ENT Exam ENT Exam: Mucous Membranes Dry, Normal External Ear Exam - Neck Exam Neck Exam: Full ROM. absent: Meningismus - Respiratory Exam Respiratory Exam: NORMAL BREATHING PATTERN. absent: Respiratory Distress - Cardiovascular Exam Cardiovascular Exam: REGULAR RHYTHM, +S1, +S2 - GI/Abdominal Exam GI & Abdominal Exam: surgical wound with dressing , + Tenderness, Normoactive Bowel Sounds - Extremities Exam Extremities Exam: Full ROM, Normal Capillary Refill, Normal Inspection. absent : Calf Tenderness, Joint Swelling, Pedal Edema - Back Exam Back Exam: Full ROM, NORMAL INSPECTION. absent: CVA tenderness (L), CVA tenderness (R) - Neurological Exam Neurological Exam: Alert, Awake, Normal Gait Neuro motor strength exam: Left Upper Extremity: 5, Right Upper Extremity: 5, Left Lower Extremity: 5, Right Lower Extremity: 5 - Psychiatric Exam Psychiatric exam: Normal Affect, Normal Mood - Skin Skin Exam: Dry, Normal Color, Warm Assessment and Plan - Assessment and Plan (Free Text) Assessment: This is a 43 year old female with a past medical history of a hysterectomy last September, who went to [facility] three days prior to admission c/o severe abdominal pain and vomiting. The patient relates that there the surgeons found an ovary which was wrapping around her intestine and subsequently unwrapped it. She now presents to [facility] due to increasingly worse sharp, crampy abdominal pain centered in the middle of her abdomen and radiating to the left and right sides. A CT scan was performed in the ED showed signs of an acute bowel obstruction. An NG tube was placed drained dark green bilious material. The patient's lab work revealed significant bandemia of 29 and neutrophil % of 81.9. She was started on IV Vancomycin and Zosyn along with aggressive rehydration with normal saline. Dr. Kaur was called on for general surgery and Dr. Cortez was called for Farm Machinery Assembler Pt had Explor Lap done by Dr Kaur - Adhesiolysis ,reduction on int hernia and bowel resection done. 1) Acute small bowel obstruction s/p Explor Lap - Adhesiolysis ,Reduction of Internal Hernia, Bowel resection with end to end anastomosis - Surgery: Dr. Kaur - NGT d/c yesterday - Continue Zosyn , d/c Vanco - Pain mgt - Zofran PRN for N/V - cont IVF - Pt had Flatus yesterdya , No BM- started on Clear liquid diet , pt is tolerating diet - normoactive BS on exam - Incentive spirometry - out of bed 2. Hypokalemia/Hypophosphatemia resolved 2) DVT ppx Lovenox
[2018-06-24] MEDS ORDERED: Piperacillin/Tazobact 3.375 GM in Sodium Chloride 0.9% 100 ML IVPB SCH ×2 (11:30→20:00)
[2018-06-25] MEDS: HYDROmorphone 0.5 mg/0.5 ml ISec IVP PRN ×4 (00:39→19:50)
[2018-06-25 07:18] LABS: HEMOGLOBIN 11.2 g/dL (12.0-16.0); MEAN CELL VOLUME 98.4 fl (81.0-99.0); MEAN CORPUSCULAR HEMOGLOBIN 34.1 pg (27.0-31.0); MEAN CORPUSCULAR HGB CONC 34.6 g/dL (33.0-37.0); RBC 3.29 Mil/uL (3.80-5.20); RED CELL DISTRIBUTION WIDTH 13.5 % (11.5-14.5); WHITE BLOOD COUNT 10.4 K/uL (4.8-10.8)
--- NOTE | 2018-06-25 07:35 | CP.PCM.PN ---
Subjective - Date & Time of Evaluation Date of Evaluation: 06/25/18 Time of Evaluation: 07:33 - Subjective Subjective: General Surgery Dr. Kaur Pt S&E @bedside. Pt had BM yesterday afternoon. Otherwise, NAEO. pain much improved. reports no relief from Oxycodone; states previously shes been given oxycotin taper for pain and takes Ultram daily for previous bladder procedure. denies N/V, F/C. tolerating CLD. (+)BM/Flatus. Objective - Vital Signs/Intake and Output Vital Signs (last 24 hours): Temp Pulse Resp BP Pulse Ox 98.4 F 72 18 138/87 99 06/25/18 06:44 06/25/18 06:44 06/25/18 06:44 06/25/18 06:44 06/25/18 06:44 - Medications Medications: Current Medications Acetaminophen (Tylenol 325mg Tab) 650 mg PO Q4 PRN PRN Reason: Pain, Mild (1-3) Benzocaine/Menthol (Cepacol Sore Throat) 1 yohana PO Q2 PRN PRN Reason: Sore Throat Enoxaparin Sodium (Lovenox) 40 mg SC DAILY [facility] PRN Reason: Protocol Last Admin: 06/24/18 09:08 Dose: 40 mg Hydromorphone HCl (Dilaudid) 0.5 mg IVP Q3 PRN PRN Reason: breakthrough pain Last Admin: 06/25/18 06:21 Dose: 0.5 mg Metoclopramide HCl (Reglan) 10 mg IVP Q8 [facility] Last Admin: 06/25/18 00:40 Dose: Not Given Ondansetron HCl (Zofran Inj) 4 mg IVP Q4 PRN PRN Reason: Nausea/Vomiting Oxycodone HCl (Oxycontin Extended Release Tab) 20 mg PO Q12 [facility] Pantoprazole Sodium (Protonix Inj) 40 mg IVP DAILY [facility] Last Admin: 06/24/18 09:08 Dose: 40 mg Tramadol HCl (Ultram) 50 mg PO BID [facility] Zolpidem Tartrate (Ambien) 5 mg PO HS [facility] Last Admin: 06/24/18 21:33 Dose: 5 mg - Labs Labs: 06/24/18 07:40 06/24/18 07:40 - Constitutional Appears: Non-toxic, No Acute Distress - Head Exam Head Exam: NORMAL INSPECTION - Eye Exam Eye Exam: Normal appearance - ENT Exam ENT Exam: Mucous Membranes Moist - Respiratory Exam Respiratory Exam: NORMAL BREATHING PATTERN. absent: Accessory Muscle Use, Respiratory Distress - Cardiovascular Exam Cardiovascular Exam: REGULAR RHYTHM. absent: Bradycardia, Tachycardia - GI/Abdominal Exam GI & Abdominal Exam: Soft, Tenderness (vitaliy-incisional TTP). absent: Distended , Firm, Guarding, Rigid, Rebound Additional comments: wisam c/d/i skin well approximated - Extremities Exam Extremities Exam: Normal Inspection - Neurological Exam Neurological Exam: Alert, Awake, Oriented x3 - Psychiatric Exam Psychiatric exam: Normal Affect, Normal Mood - Skin Skin Exam: Dry, Normal Color, Warm Assessment and Plan - Assessment and Plan (Free Text) Assessment: 43 y/o F POD#6 s/p ex-lap, reduction of internal hernia, and small bowel resection 2/2 SBO - advanced to FLD - adjusted pain meds - monitor bowel function - replete electrolytes PRN - encourage OOb to chair/Amb/IS use - DVT PPx Pt discussed w/ Dr. Orlando (covering Dr. Kaur) Mary Parker DO PGY3
[2018-06-25 07:47] LABS: BLOOD UREA NITROGEN 7 mg/dl (7-17); GFR NON-AFRICAN AMERICAN > 60
[2018-06-25] MEDS: Enoxaparin 40 mg Syringe SC SCH (09:07)
[2018-06-25] MEDS: oxyCODONE 20 mg ER Tab (oxyCONTIN) PO SCH ×2 (09:17→21:42)
--- NOTE | 2018-06-25 10:27 | CP.PCM.PN ---
Subjective - Date & Time of Evaluation Date of Evaluation: 06/25/18 Time of Evaluation: 10:15 - Subjective Subjective: No fever still with some abd pain but very much better had BM last night and this am Tolerating liquid diet no CP no SOB Objective - Vital Signs/Intake and Output Vital Signs (last 24 hours): Temp Pulse Resp BP Pulse Ox 98.3 F 83 18 125/83 100 06/25/18 08:05 06/25/18 08:05 06/25/18 08:05 06/25/18 08:05 06/25/18 08:05 - Medications Medications: Current Medications Acetaminophen (Tylenol 325mg Tab) 650 mg PO Q4 PRN PRN Reason: Pain, Mild (1-3) Benzocaine/Menthol (Cepacol Sore Throat) 1 yohana PO Q2 PRN PRN Reason: Sore Throat Last Admin: 06/25/18 09:06 Dose: 1 yohana Enoxaparin Sodium (Lovenox) 40 mg SC DAILY [facility] PRN Reason: Protocol Last Admin: 06/25/18 09:07 Dose: 40 mg Hydromorphone HCl (Dilaudid) 0.5 mg IVP Q3 PRN PRN Reason: breakthrough pain Last Admin: 06/25/18 06:21 Dose: 0.5 mg Metoclopramide HCl (Reglan) 10 mg IVP Q8 [facility] Last Admin: 06/25/18 00:40 Dose: Not Given Ondansetron HCl (Zofran Inj) 4 mg IVP Q4 PRN PRN Reason: Nausea/Vomiting Oxycodone HCl (Oxycontin Extended Release Tab) 20 mg PO Q12 [facility] Last Admin: 06/25/18 09:17 Dose: 20 mg Pantoprazole Sodium (Protonix Inj) 40 mg IVP DAILY [facility] Last Admin: 06/25/18 09:07 Dose: 40 mg Tramadol HCl (Ultram) 50 mg PO BID [facility] Last Admin: 06/25/18 09:16 Dose: 50 mg Zolpidem Tartrate (Ambien) 5 mg PO HS [facility] Last Admin: 06/24/18 21:33 Dose: 5 mg - Labs Labs: 06/25/18 05:30 06/25/18 05:30 - Constitutional Appears: In Acute Distress - Head Exam Head Exam: ATRAUMATIC, NORMAL INSPECTION, NORMOCEPHALIC - Eye Exam Eye Exam: EOMI, Normal appearance, PERRL Pupil Exam: NORMAL ACCOMMODATION - ENT Exam ENT Exam: Mucous Membranes Dry, Normal External Ear Exam - Neck Exam Neck Exam: Full ROM. absent: Meningismus - Respiratory Exam Respiratory Exam: NORMAL BREATHING PATTERN. absent: Respiratory Distress - Cardiovascular Exam Cardiovascular Exam: REGULAR RHYTHM, +S1, +S2 - GI/Abdominal Exam GI & Abdominal Exam: surgical wound intact looks clean , soft, sl Tenderness, Normoactive Bowel Sounds - Extremities Exam Extremities Exam: Full ROM, Normal Capillary Refill, Normal Inspection. absent : Calf Tenderness, Joint Swelling, Pedal Edema - Back Exam Back Exam: Full ROM, NORMAL INSPECTION. absent: CVA tenderness (L), CVA tenderness (R) - Neurological Exam Neurological Exam: Alert, Awake, Normal Gait Neuro motor strength exam: Left Upper Extremity: 5, Right Upper Extremity: 5, Left Lower Extremity: 5, Right Lower Extremity: 5 - Psychiatric Exam Psychiatric exam: Normal Affect, Normal Mood - Skin Skin Exam: Dry, Normal Color, Warm Assessment and Plan - Assessment and Plan (Free Text) Assessment: This is a 43 year old female with a past medical history of a hysterectomy last September, who went to [facility] three days prior to admission c/o severe abdominal pain and vomiting. The patient relates that there the surgeons found an ovary which was wrapping around her intestine and subsequently unwrapped it. She now presents to [facility] due to increasingly worse sharp, crampy abdominal pain centered in the middle of her abdomen and radiating to the left and right sides. A CT scan was performed in the ED showed signs of an acute bowel obstruction. An NG tube was placed drained dark green bilious material. The patient's lab work revealed significant bandemia of 29 and neutrophil % of 81.9. She was started on IV Vancomycin and Zosyn along with aggressive rehydration with normal saline. Dr. Kaur was called on for general surgery and Dr. Cortez was called for Train Clerk Pt had Explor Lap done by Dr Kaur - Adhesiolysis ,reduction on int hernia and bowel resection done. 1) Acute small bowel obstruction s/p Explor Lap - Adhesiolysis ,Reduction of Internal Hernia, Bowel resection with end to end anastomosis - Surgery: Dr. Kaur - NGT d/c - Continue Zosyn , d/c Vanco - Pain mgt - Zofran PRN for N/V - Pt had BM this am , she is tolerating her liquid diet , Surgery advanced diet to Regular for lunch - Incentive spirometry - out of bed 2. Hypokalemia/Hypophosphatemia resolved 2) DVT ppx Lovenox
[2018-06-26] MEDS: HYDROmorphone 0.5 mg/0.5 ml ISec IVP PRN (04:58)
--- NOTE | 2018-06-26 07:50 | CP.PCM.PN ---
Subjective - Date & Time of Evaluation Date of Evaluation: 06/26/18 Time of Evaluation: 07:48 - Subjective Subjective: General Surgery Dr. Orlando Pt S&E @bedside. NAEO. pain well controlled. denies F/C, N/V. OOB, ambulating hallways. tolerating diet (+)BM/Flatus Objective - Vital Signs/Intake and Output Vital Signs (last 24 hours): Temp Pulse Resp BP Pulse Ox 98.5 F 80 16 119/75 95 06/26/18 05:00 06/26/18 05:00 06/26/18 05:00 06/26/18 05:00 06/26/18 05:00 - Medications Medications: Current Medications Acetaminophen (Tylenol 325mg Tab) 650 mg PO Q4 PRN PRN Reason: Pain, Mild (1-3) Benzocaine/Menthol (Cepacol Sore Throat) 1 yohana PO Q2 PRN PRN Reason: Sore Throat Last Admin: 06/25/18 09:06 Dose: 1 yohana Enoxaparin Sodium (Lovenox) 40 mg SC DAILY [facility] PRN Reason: Protocol Last Admin: 06/25/18 09:07 Dose: 40 mg Ondansetron HCl (Zofran Inj) 4 mg IVP Q4 PRN PRN Reason: Nausea/Vomiting Oxycodone HCl (Oxycontin Extended Release Tab) 20 mg PO Q12 [facility] Last Admin: 06/25/18 21:42 Dose: 20 mg Tramadol HCl (Ultram) 50 mg PO BID [facility] Last Admin: 06/25/18 16:27 Dose: Not Given Zolpidem Tartrate (Ambien) 5 mg PO HS [facility] Last Admin: 06/25/18 21:43 Dose: 5 mg - Labs Labs: 06/25/18 05:30 06/25/18 05:30 - Constitutional Appears: Non-toxic, No Acute Distress - Head Exam Head Exam: NORMAL INSPECTION - Eye Exam Eye Exam: Normal appearance - ENT Exam ENT Exam: Mucous Membranes Moist - Respiratory Exam Respiratory Exam: NORMAL BREATHING PATTERN. absent: Accessory Muscle Use, Respiratory Distress - Cardiovascular Exam Cardiovascular Exam: REGULAR RHYTHM. absent: Bradycardia, Tachycardia - GI/Abdominal Exam GI & Abdominal Exam: Soft, Tenderness (mild vitaliy-incisional TTP). absent: Distended, Firm, Guarding, Rigid, Rebound Additional comments: wisam c/d/i skin well approximated - Extremities Exam Extremities Exam: Normal Inspection - Neurological Exam Neurological Exam: Alert, Awake, Oriented x3 - Psychiatric Exam Psychiatric exam: Normal Affect, Normal Mood - Skin Skin Exam: Dry, Intact, Normal Color, Warm Assessment and Plan - Assessment and Plan (Free Text) Assessment: 43 y/o F POD#7 s/p ex-lap, reduction of internal hernia, and small bowel resection - ADAT - pt cleared for discharge to home - f/u w/ Dr. Kaur in office in 7-10 days - take Oxycotin 20 PO Q12 PRN pain - can take OTC pain meds PRN - take stool softener while taking narcotics - cleared to return to work when off narcotics - no heavy lifting for 4-6 weeks - call Dr. Kaur &/or return to the ED if fever >101, pain, redness, drainage, stable rupture. Pt discussed w/ Dr. Darion Parker DO PGY3
--- NOTE | 2018-06-26 09:32 | CP.PCM.PN ---
Subjective - Date & Time of Evaluation Date of Evaluation: 06/26/18 Time of Evaluation: 09:27 - Subjective Subjective: General Surgery Pt seen and examined this AM. She reports feeling well, tolerating her regular diet. (+) flatus. Ambulating without difficulty. (-) N/V Labs and vitals noted PE Gen:Pt laying in bed in NAD Skin: warm and dry Cardio: s1s2 RRR Lungs: CTA bilaterally Abd: Soft, not distended, (+) tenderness only along stapled midline incision that is c/d/i Extr: (-) calf tenderness bilaterally A/P POD 7 s/p Exploratory laparoscopy, reduction of internal hernia, small bowel resection, lysis of adhesions Pt discharged from surgery service F/U in office with Dr. Kaur in 1-2 weeks for staple removal Continue regular diet Objective - Vital Signs/Intake and Output Vital Signs (last 24 hours): Temp Pulse Resp BP Pulse Ox 98.5 F 80 16 119/75 95 06/26/18 05:00 06/26/18 05:00 06/26/18 05:00 06/26/18 05:00 06/26/18 05:00 - Medications Medications: Current Medications Acetaminophen (Tylenol 325mg Tab) 650 mg PO Q4 PRN PRN Reason: Pain, Mild (1-3) Benzocaine/Menthol (Cepacol Sore Throat) 1 yohana PO Q2 PRN PRN Reason: Sore Throat Last Admin: 06/25/18 09:06 Dose: 1 yohana Enoxaparin Sodium (Lovenox) 40 mg SC DAILY [facility] PRN Reason: Protocol Last Admin: 06/25/18 09:07 Dose: 40 mg Ondansetron HCl (Zofran Inj) 4 mg IVP Q4 PRN PRN Reason: Nausea/Vomiting Oxycodone HCl (Oxycontin Extended Release Tab) 20 mg PO Q12 [facility] Last Admin: 06/25/18 21:42 Dose: 20 mg Tramadol HCl (Ultram) 50 mg PO BID [facility] Last Admin: 06/25/18 16:27 Dose: Not Given Zolpidem Tartrate (Ambien) 5 mg PO HS [facility] Last Admin: 06/25/18 21:43 Dose: 5 mg - Labs Labs: 06/25/18 05:30 06/25/18 05:30
[2018-06-26] MEDS: oxyCODONE 20 mg ER Tab (oxyCONTIN) PO SCH (09:40)
[2018-06-26] MEDS: Enoxaparin 40 mg Syringe SC SCH (09:41)
[2018-06-26 12:36] VITALS: PULSE 90
[2018-06-26 13:04] VITALS: BP 120/74; RESP 18; TEMP 98.2; O2SAT 98
--- NOTE | 2018-06-26 16:16 | CP.PCM.DIS ---
<Itzel Anglin - Last Filed: 06/26/18 16:13> Provider - Provider Date of Admission: 06/18/18 09:14 Attending physician: Christopher Maki DO Time Spent in preparation of Discharge (in minutes): 25 Hospital Course - Lab Results Lab Results: Micro Results 06/18/18 17:02 Blood-Venous Blood Culture - Final NO GROWTH AFTER 5 DAYS 06/18/18 17:02 Blood-Venous Gram Stain - Final TEST NOT PERFORMED 06/18/18 06:29 Blood-Venous Blood Culture - Final NO GROWTH AFTER 5 DAYS 06/18/18 06:29 Blood-Venous Gram Stain - Final TEST NOT PERFORMED 06/18/18 06:59 Blood-Venous Blood Culture - Final NO GROWTH AFTER 5 DAYS 06/18/18 06:59 Blood-Venous Gram Stain - Final TEST NOT PERFORMED 06/20/18 16:38 Naris MRSA Culture (Admit) - Final MRSA NOT DETECTED 06/18/18 19:55 Nose MRSA Culture (Admit) - Final MRSA NOT DETECTED 06/18/18 11:25 Urine,Clean Catch Urine Culture - Final No Growth (<1,000 CFU/ML) Most Recent Lab Values WBC 10.4 K/uL (4.8-10.8) 06/25/18 05:30 RBC 3.29 Mil/uL (3.80-5.20) L 06/25/18 05:30 Hgb 11.2 g/dL (12.0-16.0) L 06/25/18 05:30 Hct 32.4 % (34.0-47.0) L 06/25/18 05:30 MCV 98.4 fl (81.0-99.0) 06/25/18 05:30 MCH 34.1 pg (27.0-31.0) H 06/25/18 05:30 MCHC 34.6 g/dL (33.0-37.0) 06/25/18 05:30 RDW 13.5 % (11.5-14.5) 06/25/18 05:30 Plt Count 672 K/uL (130-400) H D 06/25/18 05:30 MPV 7.1 fl (7.2-11.7) L 06/22/18 05:30 Neut % (Auto) 68.9 % (50.0-75.0) 06/22/18 05:30 Lymph % (Auto) 14.2 % (20.0-40.0) L 06/22/18 05:30 Ritchie % (Auto) 13.7 % (0.0-10.0) H 06/22/18 05:30 Eos % (Auto) 3.0 % (0.0-4.0) 06/22/18 05:30 Baso % (Auto) 0.2 % (0.0-2.0) 06/22/18 05:30 Neut # (Auto) 7.2 K/uL (1.8-7.0) H 06/22/18 05:30 Lymph # (Auto) 1.5 K/uL (1.0-4.3) 06/22/18 05:30 Ritchie # (Auto) 1.4 K/uL (0.0-0.8) H 06/22/18 05:30 Eos # (Auto) 0.3 K/uL (0.0-0.7) 06/22/18 05:30 Baso # (Auto) 0.0 K/uL (0.0-0.2) 06/22/18 05:30 Neutrophils % (Manual) 48 % (42-75) 06/18/18 06:34 Band Neutrophils % 29 % (0-2) H* 06/18/18 06:34 Lymphocytes % (Manual) 10 % (20-50) L 06/18/18 06:34 Monocytes % (Manual) 11 % (0-10) H 06/18/18 06:34 Eosinophils % (Manual) 2 % (0-7) 06/18/18 06:34 Toxic Granulation Present 06/18/18 06:34 Platelet Estimate Normal (NORMAL) 06/18/18 06:34 Hypochromasia (manual) Slight 06/18/18 06:34 Macrocytosis (manual) Slight 06/18/18 06:34 pO2 18 mm/Hg (30-55) L 06/18/18 06:29 VBG pH 7.39 (7.32-7.43) 06/18/18 06:29 VBG pCO2 50 mmHg (40-60) 06/18/18 06:29 VBG HCO3 26.3 mmol/L 06/18/18 06:29 VBG Total CO2 31.8 mmol/L (22-28) H 06/18/18 06:29 VBG O2 Sat (Calc) 19.2 % (40-65) L 06/18/18 06:29 VBG Base Excess 4.2 mmol/L (0.0-2.0) H 06/18/18 06:29 VBG Potassium 3.9 mmol/L (3.6-5.2) 06/18/18 06:29 Sodium 133.0 mmol/L (132-148) 06/18/18 06:29 Chloride 98.0 mmol/L (98-107) 06/18/18 06:29 Glucose 124 mg/dL (65-105) H 06/18/18 06:29 Lactate 1.5 mmol/L (0.7-2.1) 06/18/18 06:29 FiO2 21.0 % 06/18/18 06:29 Sodium 137 mmol/l (132-148) 06/25/18 05:30 Potassium 4.2 MMOL/L (3.6-5.0) 06/25/18 05:30 Chloride 103 mmol/L (98-107) 06/25/18 05:30 Carbon Dioxide 26 mmol/L (22-30) 06/25/18 05:30 Anion Gap 12 (10-20) 06/25/18 05:30 BUN 7 mg/dl (7-17) 06/25/18 05:30 Creatinine 0.5 mg/dl (0.7-1.2) L 06/25/18 05:30 Est GFR ( Amer) > 60 06/25/18 05:30 Est GFR (Non-Af Amer) > 60 06/25/18 05:30 Random Glucose 87 mg/dL (65-105) 06/25/18 05:30 Calcium 9.0 mg/dL (8.4-10.2) 06/25/18 05:30 Phosphorus 4.0 mg/dl (2.5-4.5) 06/25/18 05:30 Magnesium 1.9 MG/DL (1.6-2.3) 06/25/18 05:30 Total Bilirubin 0.4 mg/dl (0.2-1.3) 06/19/18 05:26 AST 28 U/L (14-36) 06/19/18 05:26 ALT 26 U/L (9-52) 06/19/18 05:26 Alkaline Phosphatase 33 U/L (38-126) L D 06/19/18 05:26 Total Protein 5.2 G/DL (6.3-8.2) L 06/19/18 05:26 Albumin 2.7 g/dL (3.5-5.0) L D 06/19/18 05:26 Globulin 2.5 gm/dL (2.2-3.9) 06/19/18 05:26 Albumin/Globulin Ratio 1.1 (1.0-2.1) 06/19/18 05:26 Lipase 25 U/L (23-300) 06/18/18 06:34 Procalcitonin 0.29 NG/ML (0.19-0.49) 06/18/18 10:46 Venous Blood Potassium 3.9 mmol/L (3.6-5.2) 06/18/18 06:29 Urine Color Yellow (YELLOW) 06/18/18 11:25 Urine Clarity Slighty-cloudy (Clear) 06/18/18 11:25 Urine pH 6.0 (5.0-8.0) 06/18/18 11:25 Ur Specific [place] >= 1.030 (1.003-1.030) 06/18/18 11:25 Urine Protein 30 mg/dL (NEGATIVE) 06/18/18 11:25 Urine Glucose (UA) Neg mg/dL (Normal) 06/18/18 11:25 Urine Ketones 80 mg/dL (NEGATIVE) 06/18/18 11:25 Urine Blood Negative (NEGATIVE) 06/18/18 11:25 Urine Nitrate Negative (NEGATIVE) 06/18/18 11:25 Urine Bilirubin Negative (NEGATIVE) 06/18/18 11:25 Urine Urobilinogen 0.2-1.0 mg/dL (0.2-1.0) 06/18/18 11:25 Ur Leukocyte Esterase Neg Dc/uL (Negative) 06/18/18 11:25 Urine RBC (Auto) 3 /hpf (0-3) 06/18/18 11:25 Urine Microscopic WBC 2 /hpf (0-5) 06/18/18 11:25 Ur Squamous Epith Cells 3 /hpf (0-5) 06/18/18 11:25 Urine Bacteria Rare (<OCC) 06/18/18 11:25 Urine Opiates Screen Positive (NEGATIVE) H 06/18/18 11:25 Urine Methadone Screen Negative (NEGATIVE) 06/18/18 11:25 Ur Barbiturates Screen Negative (NEGATIVE) 06/18/18 11:25 Ur Phencyclidine Scrn Negative (NEGATIVE) 06/18/18 11:25 Ur Amphetamines Screen Negative (NEGATIVE) 06/18/18 11:25 U Benzodiazepines Scrn Negative (NEGATIVE) 06/18/18 11:25 U Oth Cocaine Metabols Negative (NEGATIVE) 06/18/18 11:25 U Cannabinoids Screen Negative (NEGATIVE) 06/18/18 11:25 Blood Type O POSITIVE 06/18/18 10:28 Blood Type Confirm O POSITIVE 06/18/18 06:29 Antibody Screen Negative 06/18/18 10:28 Crossmatch See Detail 06/18/18 10:28 BBK History Checked No verified bt 06/18/18 10:28 - Hospital Course Hospital Course: 43 year old female with a PMH of a hysterectomy last September, who went to [facility] three days prior to admission presented with severe abdominal pain and vomiting. The patient reports that at [facility], the surgeons found an ovary that was wrapping around her intestine and they proceeded to unwrap it. She presented to [facility] because of worsened sharp, crampy abdominal pain located at the middle of her abdomen and radiated to the left and right sides. A CT scan was performed in the ED & showed signs of an acute bowel obstruction. An NG tube was placed drained dark green bilious material. At that time, the patient's lab work revealed significant bandemia of 29 and neutrophil % of 81.9. She was started on IV Vancomycin and Zosyn along with aggressive rehydration with normal saline. Dr. Kaur was called on for general surgery and Dr. Cortez was called for Employment Representative. Patient was able to tolerate PO normal diet and had a BM yesterday, formed and soft. Pt had an exploratory laporatomy done by Dr. Alaniz which resulted in adhesiolysis, reduction of internal hernia and bowel resection. She is to follow up with Dr. Kaur in 1-2 weeks. Discharge Exam - Head Exam Head Exam: NORMAL INSPECTION - Eye Exam Eye Exam: Normal appearance - ENT Exam ENT Exam: Mucous Membranes Moist, Normal Oropharynx - Respiratory Exam Respiratory Exam: NORMAL BREATHING PATTERN, UNREMARKABLE. absent: Accessory Muscle Use, Chest Wall Tenderness, Decreased Breath Sounds, Prolonged Expiratory Phase, Rales, Rhonchi, Wheezes, Respiratory Distress, Stridor - Cardiovascular Exam Cardiovascular Exam: REGULAR RHYTHM, RRR, +S1, +S2. absent: Clicks, Diastolic murmur, Gallop, JVD, Rubs, +S4, Systolic Murmur - GI/Abdominal Exam GI & Abdominal Exam: Normal Bowel Sounds, Unremarkable. absent: Distended, Firm , Guarding, Hernia, Organomegaly - Neurological Exam Neurological exam: Alert, Oriented x3 - Psychiatric Exam Psychiatric exam: Normal Affect, Normal Mood - Skin Skin Exam: Dry, Intact, Normal Color, Warm Discharge Plan - Discharge Medications Prescriptions: oxyCODONE [oxyCONTIN Extended Release Tab] 20 mg PO Q12 #10 tabsr - Follow Up Plan Condition: GUARDED Disposition: HOME/ ROUTINE Instructions: Small Bowel Obstruction, Small Bowel Resection, Exploratory Laparotomy (DC) Additional Instructions: - f/u w/ Dr. Kaur in office in 7-10 days - take Oxycotin 20 PO Q12 PRN pain - can take OTC pain meds PRN - take stool softener while taking narcotics - cleared to return to work when off narcotics - no heavy lifting for 4-6 weeks - call Dr. Kaur &/or return to the ED if fever >101, pain, redness, drainage, stable rupture. Referrals: Alexis Kaur MD [Staff Provider] - <Michael Unger - Last Filed: 07/12/18 16:45> Provider - Provider Date of Admission: 06/18/18 09:14 Attending physician: Christopher Maki DO Time Spent in preparation of Discharge (in minutes): 35 Hospital Course - Lab Results Lab Results: Micro Results 06/18/18 17:02 Blood-Venous Blood Culture - Final NO GROWTH AFTER 5 DAYS 06/18/18 17:02 Blood-Venous Gram Stain - Final TEST NOT PERFORMED 06/18/18 06:29 Blood-Venous Blood Culture - Final NO GROWTH AFTER 5 DAYS 06/18/18 06:29 Blood-Venous Gram Stain - Final TEST NOT PERFORMED 06/18/18 06:59 Blood-Venous Blood Culture - Final NO GROWTH AFTER 5 DAYS 06/18/18 06:59 Blood-Venous Gram Stain - Final TEST NOT PERFORMED 06/20/18 16:38 Naris MRSA Culture (Admit) - Final MRSA NOT DETECTED 06/18/18 19:55 Nose MRSA Culture (Admit) - Final MRSA NOT DETECTED 06/18/18 11:25 Urine,Clean Catch Urine Culture - Final No Growth (<1,000 CFU/ML) Most Recent Lab Values WBC 10.4 K/uL (4.8-10.8) 06/25/18 05:30 RBC 3.29 Mil/uL (3.80-5.20) L 06/25/18 05:30 Hgb 11.2 g/dL (12.0-16.0) L 06/25/18 05:30 Hct 32.4 % (34.0-47.0) L 06/25/18 05:30 MCV 98.4 fl (81.0-99.0) 06/25/18 05:30 MCH 34.1 pg (27.0-31.0) H 06/25/18 05:30 MCHC 34.6 g/dL (33.0-37.0) 06/25/18 05:30 RDW 13.5 % (11.5-14.5) 06/25/18 05:30 Plt Count 672 K/uL (130-400) H D 06/25/18 05:30 MPV 7.1 fl (7.2-11.7) L 06/22/18 05:30 Neut % (Auto) 68.9 % (50.0-75.0) 06/22/18 05:30 Lymph % (Auto) 14.2 % (20.0-40.0) L 06/22/18 05:30 Ritchie % (Auto) 13.7 % (0.0-10.0) H 06/22/18 05:30 Eos % (Auto) 3.0 % (0.0-4.0) 06/22/18 05:30 Baso % (Auto) 0.2 % (0.0-2.0) 06/22/18 05:30 Neut # (Auto) 7.2 K/uL (1.8-7.0) H 06/22/18 05:30 Lymph # (Auto) 1.5 K/uL (1.0-4.3) 06/22/18 05:30 Ritchie # (Auto) 1.4 K/uL (0.0-0.8) H 06/22/18 05:30 Eos # (Auto) 0.3 K/uL (0.0-0.7) 06/22/18 05:30 Baso # (Auto) 0.0 K/uL (0.0-0.2) 06/22/18 05:30 Neutrophils % (Manual) 48 % (42-75) 06/18/18 06:34 Band Neutrophils % 29 % (0-2) H* 06/18/18 06:34 Lymphocytes % (Manual) 10 % (20-50) L 06/18/18 06:34 Monocytes % (Manual) 11 % (0-10) H 06/18/18 06:34 Eosinophils % (Manual) 2 % (0-7) 06/18/18 06:34 Toxic Granulation Present 06/18/18 06:34 Platelet Estimate Normal (NORMAL) 06/18/18 06:34 Hypochromasia (manual) Slight 06/18/18 06:34 Macrocytosis (manual) Slight 06/18/18 06:34 pO2 18 mm/Hg (30-55) L 06/18/18 06:29 VBG pH 7.39 (7.32-7.43) 06/18/18 06:29 VBG pCO2 50 mmHg (40-60) 06/18/18 06:29 VBG HCO3 26.3 mmol/L 06/18/18 06:29 VBG Total CO2 31.8 mmol/L (22-28) H 06/18/18 06:29 VBG O2 Sat (Calc) 19.2 % (40-65) L 06/18/18 06:29 VBG Base Excess 4.2 mmol/L (0.0-2.0) H 06/18/18 06:29 VBG Potassium 3.9 mmol/L (3.6-5.2) 06/18/18 06:29 Sodium 133.0 mmol/L (132-148) 06/18/18 06:29 Chloride 98.0 mmol/L (98-107) 06/18/18 06:29 Glucose 124 mg/dL (65-105) H 06/18/18 06:29 Lactate 1.5 mmol/L (0.7-2.1) 06/18/18 06:29 FiO2 21.0 % 06/18/18 06:29 Sodium 137 mmol/l (132-148) 06/25/18 05:30 Potassium 4.2 MMOL/L (3.6-5.0) 06/25/18 05:30 Chloride 103 mmol/L (98-107) 06/25/18 05:30 Carbon Dioxide 26 mmol/L (22-30) 06/25/18 05:30 Anion Gap 12 (10-20) 06/25/18 05:30 BUN 7 mg/dl (7-17) 06/25/18 05:30 Creatinine 0.5 mg/dl (0.7-1.2) L 06/25/18 05:30 Est GFR ( Amer) > 60 06/25/18 05:30 Est GFR (Non-Af Amer) > 60 06/25/18 05:30 Random Glucose 87 mg/dL (65-105) 06/25/18 05:30 Calcium 9.0 mg/dL (8.4-10.2) 06/25/18 05:30 Phosphorus 4.0 mg/dl (2.5-4.5) 06/25/18 05:30 Magnesium 1.9 MG/DL (1.6-2.3) 06/25/18 05:30 Total Bilirubin 0.4 mg/dl (0.2-1.3) 06/19/18 05:26 AST 28 U/L (14-36) 06/19/18 05:26 ALT 26 U/L (9-52) 06/19/18 05:26 Alkaline Phosphatase 33 U/L (38-126) L D 06/19/18 05:26 Total Protein 5.2 G/DL (6.3-8.2) L 06/19/18 05:26 Albumin 2.7 g/dL (3.5-5.0) L D 06/19/18 05:26 Globulin 2.5 gm/dL (2.2-3.9) 06/19/18 05:26 Albumin/Globulin Ratio 1.1 (1.0-2.1) 06/19/18 05:26 Lipase 25 U/L (23-300) 06/18/18 06:34 Procalcitonin 0.29 NG/ML (0.19-0.49) 06/18/18 10:46 Venous Blood Potassium 3.9 mmol/L (3.6-5.2) 06/18/18 06:29 Urine Color Yellow (YELLOW) 06/18/18 11:25 Urine Clarity Slighty-cloudy (Clear) 06/18/18 11:25 Urine pH 6.0 (5.0-8.0) 06/18/18 11:25 Ur Specific [place] >= 1.030 (1.003-1.030) 06/18/18 11:25 Urine Protein 30 mg/dL (NEGATIVE) 06/18/18 11:25 Urine Glucose (UA) Neg mg/dL (Normal) 06/18/18 11:25 Urine Ketones 80 mg/dL (NEGATIVE) 06/18/18 11:25 Urine Blood Negative (NEGATIVE) 06/18/18 11:25 Urine Nitrate Negative (NEGATIVE) 06/18/18 11:25 Urine Bilirubin Negative (NEGATIVE) 06/18/18 11:25 Urine Urobilinogen 0.2-1.0 mg/dL (0.2-1.0) 06/18/18 11:25 Ur Leukocyte Esterase Neg Dc/uL (Negative) 06/18/18 11:25 Urine RBC (Auto) 3 /hpf (0-3) 06/18/18 11:25 Urine Microscopic WBC 2 /hpf (0-5) 06/18/18 11:25 Ur Squamous Epith Cells 3 /hpf (0-5) 06/18/18 11:25 Urine Bacteria Rare (<OCC) 06/18/18 11:25 Urine Opiates Screen Positive (NEGATIVE) H 06/18/18 11:25 Urine Methadone Screen Negative (NEGATIVE) 06/18/18 11:25 Ur Barbiturates Screen Negative (NEGATIVE) 06/18/18 11:25 Ur Phencyclidine Scrn Negative (NEGATIVE) 06/18/18 11:25 Ur Amphetamines Screen Negative (NEGATIVE) 06/18/18 11:25 U Benzodiazepines Scrn Negative (NEGATIVE) 06/18/18 11:25 U Oth Cocaine Metabols Negative (NEGATIVE) 06/18/18 11:25 U Cannabinoids Screen Negative (NEGATIVE) 06/18/18 11:25 Blood Type O POSITIVE 06/18/18 10:28 Blood Type Confirm O POSITIVE 06/18/18 06:29 Antibody Screen Negative 06/18/18 10:28 Crossmatch See Detail 06/18/18 10:28 BBK History Checked No verified bt 06/18/18 10:28 Attending/Attestation - Attestation I have personally seen and examined this patient.: Yes I have fully participated in the care of the patient.: Yes I have reviewed all pertinent clinical information, including history, physical exam and plan: Yes Notes (Text): Pt had an exploratory laporatomy done by Dr. Alaniz which resulted in adhesions -lysis, reduction of internal hernia and bowel resection. She is to follow up with Dr. Kaur in 1-2 weeks.
== END 2018-06-26 12:02 | disposition home or self-care (01) | DRG 331 ==
LOC: H.ER 05:53 → H.ERHOLD 09:14 → H.ICU/CCU 13:00 → H.TEL 06-19 23:23
PROVIDERS: ADMIT Internal Medicine; ATTEND Internal Medicine
PROC: 0DQV0ZZ Repair Mesentery, Open Approach (ICD-10-PCS; 2018-06-19)
PROC: 0DB80ZZ Excision of Small Intestine, Open Approach (ICD-10-PCS; principal; 2018-06-19 13:00)
DX: K46.0 Unspecified abdominal hernia with obstruction, without gangrene (principal); D72.825 Bandemia; E86.0 Dehydration; F17.210 Nicotine dependence, cigarettes, uncomplicated; F90.9 Attention-deficit hyperactivity disorder, unspecified type; G35 Multiple sclerosis; F41.9 Anxiety disorder, unspecified; D32.0 Benign neoplasm of cerebral meninges; E87.6 Hypokalemia; E83.39 Other disorders of phosphorus metabolism